=== PATIENT | female | born 1965 | race Caucasian/White ===

== ENCOUNTER 2017-05-17 07:56 | Emergency (ER) | payer OTHER, SELFPAY | END 2017-05-17 10:37 | disposition home or self-care (01) | PROVIDERS: Emergency Provider Family Medicine; Family Provider Family Medicine; Visit Provider Family Medicine | DX: R06.02 Shortness of breath (principal); J44.1 Chronic obstructive pulmonary disease with (acute) exacerbation; J09.X2 Influenza due to identified novel influenza A virus with other respiratory manifestations | CPT/HCPCS: 71020; 80053; 82550; 82553; 82803; 83605; 84484; 85025; 87040; 87275; 87276; 93005; 94640; 96374; 99284 ==

== ENCOUNTER → 2017-07-29 10:40 | Outpatient (CLI) | payer OTHER, SELFPAY ==
--- NOTE | 2017-07-29 10:46 | XR_ITS ---
EXAM: XR lumbar spine min 4V HISTORY: ITS.REASON: LOW BACK PAIN ORDERING PHYSICIAN: Huma Courtney PATIENT AGE: 51 years COMPARISON: None FINDINGS: Normal alignment. No fracture or dislocation. No lytic or blastic change. Mild degenerative disc disease is present at L3-L4 4 L5 and L5-S1 with mild facet hypertrophic changes. IMPRESSION: Mild lumbar spondylosis, no acute finding
== END ==
PROVIDERS: PCP Family Medicine; Visit Provider Nurse Practitioner
DX: M54.5 Low back pain (principal); G89.29 Other chronic pain
CPT/HCPCS: 72110

== ENCOUNTER 2017-09-02 09:30 | Outpatient (RCR) | payer OTHER, SELFPAY | END 2017-09-02 09:31 | disposition home or self-care (01) | LOC: PT 09:30 | PROVIDERS: Family Provider Family Medicine; PCP Family Medicine; Visit Provider Nurse Practitioner | DX: M54.5 Low back pain (principal); G89.29 Other chronic pain | CPT/HCPCS: 97010; 97014; 97033; 97035; 97110; G0283 ==

== ENCOUNTER → 2017-10-26 12:55 | Outpatient (CLI) | payer OTHER, SELFPAY ==
--- NOTE | 2017-10-26 13:01 | MR_ITS ---
MR lumbar spine wo con, MR 3-d myelogram HISTORY: PT States low back pain/RT side low back numbness and bilateral Leg weakness. ITS.REASON: ACUTE BILATERAL LOW BACK PAIN WITHOUT SCIATICA ORDERING PHYSICIAN: Huma Courtney PATIENT AGE: 51 years Comparison: X-RAY 07/29/17 TECHNIQUE: Standard multiplanar multiecho sequences are performed without contrast. 3-D MIP and myelographic images are also rendered and reviewed FINDINGS: There is normal alignment. Spinal cord ends at the T12-L1 level. T11-T12 and T12-L1 have an unremarkable appearance. L1-L2: Small anterior osteophytes at the endplates. L2-L3: Mild facet and ligamentum flavum hypertrophy. L3-L4: Minimal bulging disc. Moderate facet and ligamentum flavum hypertrophy with bilateral lateral recess narrowing more prominent on the right with impingement upon the right L4 nerve root. L4-L5: Degenerative disc disease with bulging disc. Moderate to severe bilateral facet and ligamentum flavum hypertrophy with resultant transverse canal stenosis of 8 mm along with moderate bilateral foraminal narrowing and bilateral lateral recess narrowing with impingement upon the L5 nerve roots bilaterally. 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 No extruded herniated disc evident. IMPRESSION: 1. L3-L4: Minimal bulging disc. Moderate facet and ligamentum flavum hypertrophy with bilateral lateral recess narrowing more prominent on the right with impingement upon the right L4 nerve root. 2. L4-L5: Degenerative disc disease with bulging disc. Moderate to severe bilateral facet and ligamentum flavum hypertrophy with resultant transverse canal stenosis of 8 mm along with moderate bilateral foraminal narrowing and bilateral lateral recess narrowing with impingement upon the L5 nerve roots bilaterally. 3. 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
== END ==
PROVIDERS: Family Provider Family Medicine; PCP Family Medicine; Visit Provider Nurse Practitioner
DX: M54.5 Low back pain (principal)
CPT/HCPCS: 72148; 76376

== ENCOUNTER → 2018-11-08 09:24 | Outpatient (CLI) | payer OTHER, SELFPAY ==
--- NOTE | 2018-11-08 09:29 | MM_ITS ---
MM Dig screening mamm BI w/CAD ORDERING PHYSICIAN : Hilda Villalobos APRN PATIENT AGE: 52 years GENDER: Female COMPARISON: August 2014, January 2016, October 2017. & As well as 2009 mammogram INDICATION: ITS.Routine screening. No hormones. No new complaints. Family history. Maternal aunt with breast cancer x2; maternal cousin Several episodes Infection inferior left nipple TECHNIQUE: Standard CC and MLO images were obtained. R2 CAD reviewed. left CC nipple profile view included FINDINGS: Moderate breast density. Mild asymmetry. Mild heterogeneity however I see no suspicious new findings. No suspicious or dominant mass. No suspicious calcifications. Bilateral follow-up in one year adequate. RIGHT BREAST:No significant new finding Stable small intramammary node at the lateral right breast again observed LEFT BREAST:No significant new finding Stable small intramammary node at the lateral left breast again observed A stable fibroglandular elements in the retroareolar region left IMPRESSION: ...... . Stable bilateral mammogram;. No significant new findings. Moderate breast density. Follow-up in one year recommended BI-RADS Category: 2 Benign Finding(s) RECOMMENDED FOLLOW-UP: 1YR 1 YEAR FOLLOW-UP (A letter has been sent to the patient regarding results of the study.)
== END ==
PROVIDERS: PCP Nurse Practitioner; Visit Provider Nurse Practitioner Family
DX: Z00.00 Encounter for general adult medical examination without abnormal findings (principal); Z12.31 Encounter for screening mammogram for malignant neoplasm of breast
CPT/HCPCS: 77067

== ENCOUNTER 2019-12-26 14:23 | Inpatient (IN) | payer OTHER, SELFPAY ==
[2019-12-26] VITALS (21 sets, daily range): BP systolic 99–144; BP diastolic 61–91; PULSE 81–100; RESP 14–22; TEMP 36.2–43; O2SAT 93–100; BMI 46.5
--- NOTE | 2019-12-26 14:38 | PC.NURSE ---
pt admitted to room 208 via wheelchair
--- NOTE | 2019-12-26 15:23 | P.CONPHA_ITS ---
[facility] Pharmacy VTE Monitoring - Patient Demographics Admission date: 12/26/19 Report Date: 12/26/19 Time: 15:23 Allergies/Adverse Reactions: Patient Allergies TANGERINES Allergy (Mild, Uncoded 05/12/17 14:43) I-RASH Height: 1.75 m Weight: 142.882 kg - Prophylaxis VTE Prophylaxis Ordered?: Yes Types of VTE Prophylaxis: TEDS Knee High Location of Applied Device: Bilateral Lower Extremeties - VTE Diagnosis Confirmed Treatment or plan recommended: Continue Current Treatment
[2019-12-26 15:27] LABS: Chloride 109 mmol/L (98-107); Potassium 4.2 mmoL/L (3.5-5.1); Sodium 139 mmol/L (136-145)
--- NOTE | 2019-12-26 15:28 | HMH.GSCON ---
*Admission Date: 12/26/19 *Reason for consult:: Gluteal, probable perirectal abscess *History of present illness: Patient is a 54-year-old female who states that last week she had some diarrhea. She developed a abscess of the perirectal location characterized by small area of tenderness 4 days ago and was seen in her primary care provider's office. She was started on oral antibiotics. She followed up in the office this afternoon. She was found to have progression with evidence of significant soft tissue infection. She was admitted for inpatient management and surgical consultation. Review of Systems - Review of Systems Review of systems:: pertinent systems reviewed and negative unless documented below [facility] History *Have you ever received a pneumonia vaccine?: No *Have you received a flu vaccine this season?: No - *Social History Smoking Status: Never smoker Alcohol Intake: never *Occupational Status:: employed Household Members: spouse *Travel in the last 8 weeks: None Family Hx:: Non-contributory Meds Home Medications Medication Instructions Recorded Confirmed Type Azithromycin [Zithromax 250mg 250 mg PO DIRECTED #6 tab 12/26/18 Rx tab] Benzonatate [Tessalon Perle 100mg 100 mg PO TID PRN 5 Days #14 cap 12/26/18 Rx Cap] predniSONE [Prednisone 20mg 20 mg PO BID #10 tab 12/26/18 Rx Tab] Allergies Allergy/AdvReac Type Severity Reaction Status Date / Time TANGERINES Allergy Mild I-RASH Uncoded 05/12/17 14:43 Exam Vital signs and Labs for Last 24 Hours: Temp Pulse Resp BP Pulse Ox 97.9 F 100 H 22 103/75 L 98 12/26/19 14:50 12/26/19 14:50 12/26/19 14:50 12/26/19 14:50 12/26/19 14:50 I & O for Last 24 hours: Intake & Output 12/24/19 12/25/19 12/26/19 12/27/19 11:59 11:59 11:59 11:59 Weight 315 lb - *Routine Respiratory Exam Present: CTA bilaterally - *Routine Cardiovascular Exam Present: RRR - *Routine Exam Comments: Patient has a large abscess of the perineum involving the left gluteal area which is markedly tender. There is obvious full-thickness soft tissue necrosis which is very foul-smelling. Assessment and Plan - Assessment and plan all Dx Assessment and Plan for all problems:: Plan for emergent incision and drainage and debridement of apparent necrotizing soft tissue infection. I explained the seriousness of the situation to the patient including the planned procedure. I did inform her that this could potentially require more extensive surgery including even diverting colostomy and potentially transfer to tertiary facility pending the operative findings and and immediate postoperative situation. Arrangements are to be made for immediate operative intervention.
[2019-12-26 15:30] LABS: Anion Gap 16.2 mEq/L (5-15); Blood Urea Nitrogen 39 mg/dl (7-17); Calcium 9.3 mg/dl (8.4-10.2); Carbon Dioxide 18 mmol/L (22.0-30.0); Creatinine Clearance Estimated 33 mL/min (50-200); Estimated Glomerular Filt Rate 25 ml/min (>60); GFR (African American) 30 ML/MIN (>60); Glucose 116 mg/dl (74-100)
[2019-12-26 15:32] LABS: Basophils # 0.1 K/mm3 (0-0.2); Basophils % 0.4 % (0.1-2.0); Eosinophils # 0.3 K/mm3 (0.0-0.4); Eosinophils % 1.8 % (0.1-12.0); Hemoglobin 12.3 g/dL (12.2-16.2); Mean Corpuscular HGB Conc 33.3 g/dL (31.8-35.4); Mean Corpuscular Hemoglobin 28.1 pg (27.0-31.2); Mean Corpuscular Volume 84.4 fl (81-99); Mean Platelet Volume 8.7 fl (7.4-10.4); Monocytes # 0.7 K/mm3 (0.1-1.0); Monocytes % 4.1 % (1.7-9.3); Neutrophils # 11.8 K/mm3 (1.8-7.8); Neutrophils % 74.7 % (37.0-80.0); Platelet Count 510 K/mm3 (142-424); Red Blood Count 4.39 M/mm3 (4.20-5.40); Red Cell Distribution Width 14.4 % (11.5-17.5); White Blood Count 15.8 K/mm3 (4.8-10.8)
[2019-12-26 15:41] LABS: MANUAL DIFFERENTIAL MANUAL DIFFERENTIAL (MANUAL DIFF)
--- NOTE | 2019-12-26 15:53 | HMH.HP ---
*Admission Date: 12/26/19 *Chief complaint: left buttock pain *History of present illness: 54 year old female seen in office today with swollen, tender, fluctuant mass in inferior left buttock that first appearred December 20. On December 20 patient noted discomfort in the area with progressive swelling and pain by December 21. On December 21 the lesion partially ruptured which relieved some of the pain. Patient seen in office on December 22 and had abscess, suspected to be perirectal due to foul smell from wound. Patient gave history of recent diarrheal illness 4 days before mass appeared. Patient declined admission citing cost of hospitalization. In follow up today the wound was no better and was draining stool from the center of the wound. Patient denied fevers. Bowel movements were loose. [facility] History I have reviewed the patient's past medical history: Yes Medical History: Reports:: Asthma, Hypertension *Have you ever received a pneumonia vaccine?: No *Have you received a flu vaccine this season?: No - *Social History Smoking Status: Never smoker Alcohol Intake: never *Occupational Status:: employed Household Members: spouse *Travel in the last 8 weeks: None Family Hx:: Non-contributory Review of Systems - Constitutional Denies anorexia, Denies body ache(s), Denies chills, Denies fever(s) - ENT Reports abnormal hearing, Reports bleeding gums - *Cardiovascular Reports chest pain, Reports chest pain at rest - *Respiratory Reports change in phlegm color, Reports chest congestion, Reports cough - *Gastrointestinal Reports abdominal pain, Reports belching, Reports bloating - *Genitourinary Denies painful urination, Denies genital lesions - Integumentary/Breasts Reports bleeding lesions, Reports redness, Reports boil - *Neurologic Denies abnormal speech, Denies confusion Meds Home Medications Medication Instructions Recorded Confirmed Type Albuterol Sulfate [Albuterol 18 gm IH Q6 PRN 12/26/19 12/26/19 History Sulfate Hfa] Amoxicillin/Potassium Clav 1 tab PO BID 12/26/19 12/26/19 History [Amox-Clav 875-125 mg Tablet] Cyclobenzaprine HCl 10 mg PO TID PRN 12/26/19 12/26/19 History [Cyclobenzaprine 10mg Tab] Diclofenac Sodium [Diclofenac 75mg 75 mg PO BID 12/26/19 12/26/19 History Tab] Famotidine [Acid Controller] 20 mg PO BID 12/26/19 12/26/19 History Fluticasone Propion/Salmeterol 1 puff PO BID 12/26/19 12/26/19 History [Fluticasone-Salmeterol 500-50] Gabapentin [Gabapentin 100mg Cap] 100 mg PO HS 12/26/19 12/26/19 History Loratadine [Allergy] 10 mg PO DAILY 12/26/19 12/26/19 History Simvastatin 20 mg PO DAILY 12/26/19 12/26/19 History lisinopriL [Lisinopril 10mg Tab] 10 mg PO DAILY 12/26/19 12/26/19 History Allergies Allergy/AdvReac Type Severity Reaction Status Date / Time TANGERINES Allergy Mild I-RASH Uncoded 05/12/17 14:43 Exam Vital signs and Labs for Last 24 Hours: Temp Pulse Resp BP Pulse Ox 97.9 F 100 H 22 103/75 L 98 12/26/19 14:50 12/26/19 14:50 12/26/19 14:50 12/26/19 14:50 12/26/19 14:50 Laboratory Results - last 24 hr 12/26/19 15:10: WBC 15.8 H, RBC 4.39, Hgb 12.3, Hct 37.0, MCV 84.4, MCH 28.1, MCHC 33.3, RDW 14.4, Plt Count 510 H, MPV 8.7, Neut % (Auto) 74.7, Lymph % (Auto) 19.0, [place] % (Auto) 4.1, Eos % (Auto) 1.8, Baso % (Auto) 0.4, Neut # (Auto) 11.8 H, Lymph # (Auto) 3.0, [place] # (Auto) 0.7, Eos # (Auto) 0.3, Baso # (Auto) 0.1 12/26/19 15:10: Sodium 139, Potassium 4.2, Chloride 109 H, Carbon Dioxide 18 L, Anion Gap 16.2 H, BUN 39 H, Creatinine 2.10 H, Estimated Creat Clear 33, Estimated GFR 25 L, Est GFR ( Amer) 30 L, Glucose 116 H, Calcium 9.3 I & O for Last 24 hours: Intake & Output 12/24/19 12/25/19 12/26/19 12/27/19 11:59 11:59 11:59 11:59 Weight 315 lb - Constitutional mild distress - *Routine HEENT Exam Head: Present: normocephalic Eye: Present: EOMI, PERRL ENT: Present: mucous membranes moist - *Routine Neck Exam Present: gilliland
--- NOTE | 2019-12-26 15:58 | PC.NURSE ---
pt to OR @ [id number] via bed with Kenny Parr RN
[2019-12-26 16:06] LABS: Coronavirus 19 IgG Antibody Negative (Negative); Coronavirus 19 IgM Antibody Negative (Negative)
[2019-12-26 16:12] LABS: Lymphocytes % 13 % (10-50); Monocytes % 2 % (2-9); Neutrophils % 80 % (42-76); Platelet Estimate Slight Increase; RBC Morphology Normal; Total Cells Counted 100
--- NOTE | 2019-12-26 16:26 | PC.NURSE ---
called preop (Kenny Parr) regarding pt's lab work. Pt is triggering for sepsis. RR>20, P>90, WBC 15.8 and Cr 2.10. Kenny Parr reports that pt is already in surgery and that she will notify Dr. Corbin of the results.
--- NOTE | 2019-12-26 16:27 | PC.NURSE ---
received phone call from Ana Silva RN regarding pt. meeting sepsis criteria. Called into OR and informed Spenser Petersen CRNA and he stated he would inform Dr. Corbin.
--- NOTE | 2019-12-26 16:44 | PC.NURSE ---
pt's left buttock wound measures 8cm length and 5cm width. Picture obtained for chart.
--- NOTE | 2019-12-26 17:13 | HMH.OPNOTE ---
Date of procedure: 12/26/19 Pre-op Diagnosis:: Necrotizing soft tissue infection of the left gluteal region Post-op Diagnosis:: Same Procedure performed:: Incision and drainage of complex left gluteal/perirectal abscess with debridement of skin and subcutaneous tissues Surgeon:: Javier Corbin MD TELEVISION NEWS ANCHOR:: Art Petersen Anesthesia: LMA Estimated blood loss (mL): 25 Clinical Note:: Patient is a 54-year-old female who states that last week she had some diarrhea. She developed a abscess of the perirectal location characterized by small area of tenderness 4 days ago and was seen in her primary care provider's office. She was started on oral antibiotics. She followed up in the office this afternoon. She was found to have progression with evidence of significant soft tissue infection. She was admitted for inpatient management and surgical consultation. Patient was seen and examined found to have a large area of cellulitis with central fluctuance with evidence of full-thickness necrosis with foul-smelling drainage consistent with at least focal area of necrotizing soft tissue infection. Plan was made for emergent debridement Operative findings:: She had area of full-thickness necrosis of the skin and superficial subcutaneous tissue. There was some deep tracking in the inferior lateral location and somewhat anteriorly there was some tunneling. There is minimal deep tracking and undermining medially. Overall size of the debrided area measured approximately 8 x 12 cm. Operative note:: Consent was obtained and patient was taken the operating room. She was given preoperative intravenous antibiotics. In the operating room she was placed in a supine position. General anesthesia was induced. She was positioned in traditional lithotomy position. The area was prepped and draped in the standard surgical fashion. There was evidence of full-thickness necrosis with some liquefied necrosis. Limited incision was made at the border of the obvious necrosis. There is some underlying purulent material which was sent for culture. Obviously necrotic tissues were sharply debrided from the underlying subcutaneous tissues. Additional debridement was carried out using electrocautery. The wound was rather wide. Debridement was carried out to what appeared to be relatively healthy soft tissues. Please see wound dimensions and findings. Wound was then thoroughly irrigated with 3 L of pulsatile saline irrigation using the inter-pulse device. Hemostasis was achieved with electrocautery. Some local anesthetic was infiltrated. Wound was packed with a saline moistened Kerlix gauze. Clean dry sterile dressing was applied. Condition: stable Disposition: PACU Specimens:: Debrided tissue. Aerobic and anaerobic culture sent Complications:: None immediately apparent
--- NOTE | 2019-12-26 17:16 | HMH.ANESCL ---
[facility] Anesthesia Checklist - Patient Identification Patient Identification: Arm Band - Structural Data Admitted From: Inpatient Planned Operative Procedure/s: I&D perirectal abscess Consent for Planned Operative Procedure(s) Verified: Yes Verified Documents: Surgical Consent, History and Physical - NPO Status Verified Time NPO: 07:00 - Additional verifications Anesthesia Reactions: No - Airway Assessment C-Spine Mobility Assessed: Yes (mp2) TMJ Mobility Assessed: Yes Dentition: Poor Dentition (upper edentulous) - Neurological Assessment Level of Consciousness: Awake, Alert - Anesthesia Plan Anesthesia Risk discussed: Yes Anesthesia Plan: Verified ASA Class: III (e) Anesthesia Type: General [facility] History I have reviewed the patient's past medical history: Yes Medical History: Reports:: Asthma, Chronic Obstructive Pulmonary Disease (COPD), Hypertension Denies:: Cancer, Diabetes Mellitus Type 1, Diabetes Mellitus Type 2, Internal Pacemaker, MRSA *Have you ever received a pneumonia vaccine?: No *Have you received a flu vaccine this season?: No Anesthesia experience/problems:: nac Other Surgeries: Yes: Hysterectomy-Total, Other. No: Pacemaker Amputation: No Fractures: No - *Social History Last grade of school completed: High school graduate Smoking Status: Never smoker Alcohol Intake: never Substance Use Type: denies use *Occupational Status:: employed Housing: house Household Members: spouse *Travel in the last 8 weeks: None Family Hx:: Unable to obtain
--- NOTE | 2019-12-26 17:17 | P.PN_ITS ---
[facility] Anesthesia Record Part I Intake, IV Amount: 800 Estimated blood loss (mL): 25 Urine output (mL): 0 Blood Pressure: 105/64 SaO2: 95 Pulse Rate: 87 Respiratory Rate: 16 Temperature: 97.1 F Patient is:: Drowsy, Stable Stable to PACU at:: 17:15
--- NOTE | 2019-12-26 17:47 | PC.NURSE ---
received report from PACU (Winter Champion RN).
--- NOTE | 2019-12-26 18:06 | PC.NURSE ---
1748-detailed report called to KING Drake 1750-pt transported to 2nd floor room 208 via hospital bed w/preet rails up per KING Molina and ST Kris. Pt left in care of KING Drake with bed locked in lowest position, vss, family at bedside, pt stable.
--- NOTE | 2019-12-26 18:15 | PC.NURSE ---
Vanc consult on JUL. Called pharmacist onclurdes. Received call back from Emerita Gutierrez with new order for Vanc 2500mg Q24hrs. Give 1st dose now. 250mL bag of NS over 2hrs. Order read back to Emerita Gutierrez. Order faxed to [place] pharmacy.
[2019-12-26 18:45] LABS: Hemoglobin A1C 5.9 % (4.0-6.0)
--- NOTE | 2019-12-26 19:42 | HMH.ANESII ---
[facility] Anesthesia Record Part II Discharge Time: 17:51 Destination: Medical Surgical Department PACU nurse assessment reviewed?: Yes Patient Condition:: Good Anesthesia Complications:: None Swallowing reflex intact?: Yes Cyanosis?: No Blood Pressure: 118/84 Pulse Rate: 84 Temperature: 97.6 F Mental Status: Alert & Oriented Pain level:: 0 Nausea and/or vomitting:: None Intake, IV Amount: 0
[2019-12-27] VITALS (7 sets, daily range): BP systolic 101–124; BP diastolic 44–71; PULSE 83–96; RESP 17–22; TEMP 36.7–37.1; O2SAT 95–99; BMI 47.0
--- NOTE | 2019-12-27 05:27 | PC.NURSE ---
2044- WHILE ASSISTING PT. TO BSC ABD AND SOME 4X4'S FELL OFF; REPLACED THESE WITH NEW AND REINFORCED DSG WITH TAPE. 199- WHILE ASSISTING PT. ON BSC, DSG FELL OFF. SOME SALINE SOAKED KERLEX REMAINED. PACKED WOUND WITH ADDITIONAL SALINE SOAKED KERLEX, APPLIED 4X4S, ABD PAD, AND TAPE. PT. WAS PREMEDICATED PRIOR TO DSG BEING APPLIED. MODERATE SEROUS DRAINAGE NOTED T/O SHIFT. NO VISIBLE S/S OF INFECTION NOTED.
--- NOTE | 2019-12-27 07:09 | HMH.GSPN ---
Subjective Narrative: Patient without complaints other than being hungry . Dressing change performed earlier this morning due to dislodgment of the dressing during bathroom trip. Exam Vital signs and Labs for Last 24 Hours: Temp Pulse Resp BP Pulse Ox 98.1 F 83 17 113/71 97 12/27/19 04:00 12/27/19 04:00 12/27/19 04:00 12/27/19 04:00 12/27/19 04:00 Laboratory Results - last 24 hr 12/26/19 15:10: WBC 15.8 H, RBC 4.39, Hgb 12.3, Hct 37.0, MCV 84.4, MCH 28.1, MCHC 33.3, RDW 14.4, Plt Count 510 H, MPV 8.7, Neut % (Auto) 74.7, Lymph % (Auto) 19.0, [place] % (Auto) 4.1, Eos % (Auto) 1.8, Baso % (Auto) 0.4, Neut # (Auto) 11.8 H, Lymph # (Auto) 3.0, [place] # (Auto) 0.7, Eos # (Auto) 0.3, Baso # (Auto) 0.1, Total Counted 100, Neutrophils % (Manual) 80 H, Band Neutrophils % 5.0, Lymphocytes % (Manual) 13, Monocytes % (Manual) 2, Platelet Estimate Slight increase, RBC Morphology Normal 12/26/19 15:10: Sodium 139, Potassium 4.2, Chloride 109 H, Carbon Dioxide 18 L, Anion Gap 16.2 H, BUN 39 H, Creatinine 2.10 H, Estimated Creat Clear 33, Estimated GFR 25 L, Est GFR ( Amer) 30 L, Glucose 116 H, Calcium 9.3 12/26/19 15:10: SARS-CoV-2 IgG Ab (Rapid) Negative, SARS-CoV-2 IgM Ab (Rapid) Negative 12/26/19 15:10: Hemoglobin A1c 5.9 I & O for Last 24 hours: Intake & Output 12/24/19 12/25/19 12/26/19 12/27/19 11:59 11:59 11:59 11:59 Intake Total 920 / 920 Output Total 1100 / 1100 Balance -180 / -180 Weight 318 lb Microbiology Reports for the Last 24 Hours: Microbiology 12/26/19 16:35 Buttock - Abscess Gram Stain - Final 12/26/19 16:35 Buttock - Abscess Abscess Culture - Preliminary - *Routine Skin Exam Comments: Wound is clean. There is some minor induration and cellulitis surrounding which is somewhat tender. Progress Note: A&P (1) Zoya-rectal abscess Status: Acute Current Visit: Yes Assessment and Plan for All Diagnoses:: Continue wound care and antibiotics. Currently on Zosyn and vancomycin. Cultures pending.
--- NOTE | 2019-12-27 07:23 | HMH.ACPN2 ---
Internal Medicine - PN: Subj *Date: 12/27/19 *Time: 07:23 Interval history: Patient reports improvement in pain in the left buttock. Because of the large wound she has trouble keeping her packing in the wound. Exam Vital signs and Labs for Last 24 Hours: Temp Pulse Resp BP Pulse Ox 98.1 F 83 17 113/71 97 12/27/19 04:00 12/27/19 04:00 12/27/19 04:00 12/27/19 04:00 12/27/19 04:00 Laboratory Results - last 24 hr 12/26/19 15:10: WBC 15.8 H, RBC 4.39, Hgb 12.3, Hct 37.0, MCV 84.4, MCH 28.1, MCHC 33.3, RDW 14.4, Plt Count 510 H, MPV 8.7, Neut % (Auto) 74.7, Lymph % (Auto) 19.0, [place] % (Auto) 4.1, Eos % (Auto) 1.8, Baso % (Auto) 0.4, Neut # (Auto) 11.8 H, Lymph # (Auto) 3.0, [place] # (Auto) 0.7, Eos # (Auto) 0.3, Baso # (Auto) 0.1, Total Counted 100, Neutrophils % (Manual) 80 H, Band Neutrophils % 5.0, Lymphocytes % (Manual) 13, Monocytes % (Manual) 2, Platelet Estimate Slight increase, RBC Morphology Normal 12/26/19 15:10: Sodium 139, Potassium 4.2, Chloride 109 H, Carbon Dioxide 18 L, Anion Gap 16.2 H, BUN 39 H, Creatinine 2.10 H, Estimated Creat Clear 33, Estimated GFR 25 L, Est GFR ( Amer) 30 L, Glucose 116 H, Calcium 9.3 12/26/19 15:10: SARS-CoV-2 IgG Ab (Rapid) Negative, SARS-CoV-2 IgM Ab (Rapid) Negative 12/26/19 15:10: Hemoglobin A1c 5.9 I & O for Last 24 hours: Intake & Output 12/24/19 12/25/19 12/26/19 12/27/19 11:59 11:59 11:59 11:59 Intake Total 920 / 920 Output Total 1100 / 1100 Balance -180 / -180 Weight 318 lb Microbiology Reports for the Last 24 Hours: Microbiology 12/26/19 16:35 Buttock - Abscess Gram Stain - Final 12/26/19 16:35 Buttock - Abscess Abscess Culture - Preliminary Narrative: Patient looks comfortable. Lungs have expiratory wheezes this morning. Heart has a regular rate and rhythm abdomen is obese and soft. Left inferior buttock dressing is in place at this time Assessment and Plan (1) Zoya-rectal abscess Current visit: Yes Status: Acute Category: Medical Code(s): K61.1 - Rectal abscess Continue IV antibiotics and dressing changes. Await cultures (2) Asthma, moderate persistent Current visit: Yes Status: Chronic Category: Medical Code(s): J45.40 - Moderate persistent asthma, uncomplicated Start home medications (3) Essential hypertension Current visit: Yes Status: Chronic Category: Medical Code(s): I10 - Essential (primary) hypertension Start lisinopril
[2019-12-27 08:44] LABS: Basophils # 0.1 K/mm3 (0-0.2); Basophils % 0.3 % (0.1-2.0); Eosinophils # 0.1 K/mm3 (0.0-0.4); Eosinophils % 0.3 % (0.1-12.0); Hematocrit 35.5 % (37.0-47.0); Hemoglobin 11.7 g/dL (12.2-16.2); Lymphocytes # 2.3 K/mm3 (0.7-4.5); Lymphocytes % 11.5 % (10-50); Mean Corpuscular Hemoglobin 28.3 pg (27.0-31.2); Mean Platelet Volume 7.5 fl (7.4-10.4); Monocytes # 0.4 K/mm3 (0.1-1.0); Monocytes % 1.9 % (1.7-9.3); Neutrophils # 17.2 K/mm3 (1.8-7.8); Neutrophils % 86.1 % (37.0-80.0); Platelet Count 528 K/mm3 (142-424); Red Blood Count 4.13 M/mm3 (4.20-5.40); Red Cell Distribution Width 14.4 % (11.5-17.5)
--- NOTE | 2019-12-27 08:50 | HMH.PHACONS ---
- Pharmacy Consult Date: 12/27/19 Time: 08:50 Referring provider: DR. VILA Reason for Consult:: VANCOMYCIN DOSING Allergies and ADEs:: Allergies Allergy/AdvReac Type Severity Reaction Status Date / Time MILADY Allergy Mild I-RASH Uncoded 05/12/17 14:43 Home Medications:: Home Medications Medication Instructions Recorded Confirmed Type Albuterol Sulfate [Albuterol 18 gm IH Q6 PRN 12/26/19 12/26/19 History Sulfate Hfa] Amoxicillin/Potassium Clav 1 tab PO BID 12/26/19 12/26/19 History [Amox-Clav 875-125 mg Tablet] Cyclobenzaprine HCl 10 mg PO TID PRN 12/26/19 12/26/19 History [Cyclobenzaprine 10mg Tab] Diclofenac Sodium [Diclofenac 75mg 75 mg PO BID 12/26/19 12/26/19 History Tab] Famotidine [Acid Controller] 20 mg PO BID 12/26/19 12/26/19 History Fluticasone Propion/Salmeterol 1 puff PO BID 12/26/19 12/26/19 History [Fluticasone-Salmeterol 500-50] Gabapentin [Gabapentin 100mg Cap] 100 mg PO HS 12/26/19 12/26/19 History Loratadine [Allergy] 10 mg PO DAILY 12/26/19 12/26/19 History Simvastatin 20 mg PO DAILY 12/26/19 12/26/19 History lisinopriL [Lisinopril 10mg Tab] 10 mg PO DAILY 12/26/19 12/26/19 History Height: 1.75 m Weight: 144.242 kg Laboratory Results:: Laboratory Results - last 24 hr 12/26/19 15:10: WBC 15.8 H, RBC 4.39, Hgb 12.3, Hct 37.0, MCV 84.4, MCH 28.1, MCHC 33.3, RDW 14.4, Plt Count 510 H, MPV 8.7, Neut % (Auto) 74.7, Lymph % (Auto) 19.0, [place] % (Auto) 4.1, Eos % (Auto) 1.8, Baso % (Auto) 0.4, Neut # (Auto) 11.8 H, Lymph # (Auto) 3.0, [place] # (Auto) 0.7, Eos # (Auto) 0.3, Baso # (Auto) 0.1, Total Counted 100, Neutrophils % (Manual) 80 H, Band Neutrophils % 5.0, Lymphocytes % (Manual) 13, Monocytes % (Manual) 2, Platelet Estimate Slight increase, RBC Morphology Normal 12/26/19 15:10: Sodium 139, Potassium 4.2, Chloride 109 H, Carbon Dioxide 18 L, Anion Gap 16.2 H, BUN 39 H, Creatinine 2.10 H, Estimated Creat Clear 33, Estimated GFR 25 L, Est GFR ( Amer) 30 L, Glucose 116 H, Calcium 9.3 12/26/19 15:10: SARS-CoV-2 IgG Ab (Rapid) Negative, SARS-CoV-2 IgM Ab (Rapid) Negative 12/26/19 15:10: Hemoglobin A1c 5.9 Medical History: Reports:: Asthma, Chronic Obstructive Pulmonary Disease (COPD), Hypertension Denies:: Cancer, Diabetes Mellitus Type 1, Diabetes Mellitus Type 2, Internal Pacemaker, MRSA Assessment and Plan (1) Zoya-rectal abscess Current visit: Yes Status: Acute Category: Medical Code(s): K61.1 - Rectal abscess (2) Asthma, moderate persistent Current visit: Yes Status: Chronic Category: Medical Code(s): J45.40 - Moderate persistent asthma, uncomplicated (3) Essential hypertension Current visit: Yes Status: Chronic Category: Medical Code(s): I10 - Essential (primary) hypertension - Assessment and plan all Dx Assessment and Plan for all problems:: IBW (kg): 65.97 Dosing wt(kg): 144 Estimated Creatinine clearance (ml/min): 42.8 CRCL method: Cockcroft and Gault using ibw(default). Drug selected: Vancomycin Loading dose (mg): 0 Vd (liters): 115.2 (factor used: 0.8 L/kg) Bishnu (hr-1): 0.040 Half life (hrs): 17.33 Recommended dose: 2500 mg Interval: 24 hrs Infusion time (hrs): 2.0 Predicted peak (mcg/mL): 33.8 Predicted trough (mcg/mL): 14.02 Total body weight is being used for vancomycin dosing. Recommendations: Give Vancomycin 2500 mg q 24 hrs with an expected Cpeak of 33.8 mcg/ml and an expected Ctrough of 14.02 mcg/ml. Thank you for the consult, will continue to follow.
[2019-12-27 08:53] LABS: Chloride 110 mmol/L (98-107)
[2019-12-27 08:54] LABS: Potassium 4.7 mmoL/L (3.5-5.1); Sodium 140 mmol/L (136-145)
[2019-12-27 08:55] LABS: MANUAL DIFFERENTIAL MANUAL DIFFERENTIAL (MANUAL DIFF)
[2019-12-27 08:56] LABS: Blood Urea Nitrogen 24 mg/dl (7-17); Creatinine Clearance Estimated 41 mL/min (50-200); Estimated Glomerular Filt Rate 34 ml/min (>60); GFR (African American) 41 ML/MIN (>60)
[2019-12-27 08:57] LABS: Anion Gap 13.7 mEq/L (5-15); Carbon Dioxide 21 mmol/L (22.0-30.0); Glucose 147 mg/dl (74-100)
[2019-12-27 10:18] LABS: Eosinophils % 1 % (0-3); Lymphocytes % 10 % (10-50); Monocytes % 3 % (2-9); Neutrophils % 86 % (42-76); RBC Morphology Normal; Total Cells Counted 100
[2019-12-27 10:19] LABS: Platelet Estimate Slight Increase
--- NOTE | 2019-12-27 16:08 | PC.NURSE ---
PT AO*4 T/O SHIFT, CURRENTLY 99% ON RA. PT HAS HAD DRESSING CHANGE *1 THIS SHIFT AFTER DRESSING BECAME DISLODGED WITH AMBULATION. ABSESS ON LEFT BUTTOCK REPACKED WITH KERLEX AND COVERED WITH TAPE, DRESSING C/D/I. PT HAS BEEN MEDICATED WITH MORPHINE *1 THIS SHIFT FOLLOWING WOUND CARE. AFTER MORPHINE ADMIN PT RESTED COMFORTABLY. NO C/O SOA OR PAIN AT THIS TIME.
--- NOTE | 2019-12-27 20:15 | PC.NURSE ---
PT HAS NEEDED 2 DRESSING CHANGES THIS SHIFT B/C PACKING FALLS OUT WHEN PT GETS UP TO HAVE A BOWEL MOVEMENT. MEDICATED WITH MORPHINE AFTER EACH DRESSING CHANGE.
[2019-12-28] VITALS: BP 124/64; PULSE 64; RESP 16; TEMP 36.7; O2SAT 98
--- NOTE | 2019-12-28 03:34 | PC.NURSE ---
A&OX4. PT HAS TOLERATED ROOM AIR WELL TONIGHT. RESPIRATIONS REGULAR AND UNLABORED. WHEEZES NOTED THROUGHOUT. NO COUGH NOTED. +2 PULSES NOTED THROUGHOUT. NO EDEMA NOTED. HAND TELECOMMUNICATIONS PROJECT MANAGER EQUAL. DRESSING NOTED TO L BUTTOCK AREA R/T JAE RECTAL ABSCESS. CDI. ACTIVE BOWEL SOUNDS HEARD IN ALL 4 QUADRANTS. SOFT AND NONTENDER. PT AMBULATES TO THE RESTROOM INDEPENDENTLY. TOLERATES WELL. CLEAR YELLOW URINE NOTED IN MEASURING HAT. NO REPORTS OF NAUSEA THUS FAR. PT HAS BEEN RESTLESS IN BED SOME AND STATES SHE IS HAVING TROUBLE GETTING COMFORTABLE IN BED. PROVIDED PT WITH PILLOWS AND SHE STATED IT WAS A LOT BETTER. PT REPORTED PAIN ONCE THIS SHIFT RATING 6/10. PT STATED SHE DIDN'T WANT TO TAKE ANYTHING AT FIRST BECAUSE SHE KNEW SHE WOULDN'T BE ABLE TO TAKE ANYTHING ONCE SHE WAS DISCHARGED. SHE ALSO SAID SHE WAS SCARED TO TAKE PAIN MEDS DUE TO HX OF ADDICTION IN HER FAMILY. PT EVENTUALLY ASKED FOR PAIN MEDS AND MORPHINE 2MG WAS ADMINISTERED PER MAR. ON REASSESSMENT, PT WAS RESTING W EYES CLOSED. PT RECEIVED ZOSYN THIS SHIFT AND TOLERATED WELL. PT CURRENTLY SLEEPING IN BED W CALL LIGHT WITHIN REACH. BED IN LOWEST POSITION. VSS. NO CONCERNS AT THIS TIME. WILL CONTINUE TO MONITOR.
[2019-12-28 04:00] VITALS: BP 100/54; PULSE 90; RESP 17; TEMP 36.8; O2SAT 93
[2019-12-28 06:00] VITALS: BMI 47.1
[2019-12-28 06:33] LABS: Basophils # 0.1 K/mm3 (0-0.2); Basophils % 0.6 % (0.1-2.0); Eosinophils # 0.2 K/mm3 (0.0-0.4); Eosinophils % 1.2 % (0.1-12.0); Hematocrit 36.4 % (37.0-47.0); Hemoglobin 11.9 g/dL (12.2-16.2); Lymphocytes # 4.4 K/mm3 (0.7-4.5); Lymphocytes % 27.8 % (10-50); Mean Corpuscular HGB Conc 32.6 g/dL (31.8-35.4); Mean Corpuscular Hemoglobin 28.3 pg (27.0-31.2); Mean Corpuscular Volume 86.7 fl (81-99); Mean Platelet Volume 8.1 fl (7.4-10.4); Monocytes # 0.7 K/mm3 (0.1-1.0); Monocytes % 4.1 % (1.7-9.3); Neutrophils # 10.5 K/mm3 (1.8-7.8); Neutrophils % 66.3 % (37.0-80.0); Platelet Count 562 K/mm3 (142-424); Red Blood Count 4.19 M/mm3 (4.20-5.40); Red Cell Distribution Width 14.5 % (11.5-17.5); White Blood Count 15.8 K/mm3 (4.8-10.8)
[2019-12-28 06:44] LABS: MANUAL DIFFERENTIAL MANUAL DIFFERENTIAL (MANUAL DIFF)
--- NOTE | 2019-12-28 07:12 | P.PN_ITS ---
Internal Medicine - PN: Subj *Date: 12/28/19 *Time: 07:12 Interval history: Patient has no complaints this morning. She slept well overnight. Packing has remained in place. She reports improvement in pain although hesitancy to use narcotic pain medicine due to strong family history of dependency Exam Vital signs and Labs for Last 24 Hours: Temp Pulse Resp BP Pulse Ox 98.2 F 90 17 100/54 L 93 L 12/28/19 04:00 12/28/19 04:00 12/28/19 04:00 12/28/19 04:00 12/28/19 04:00 Laboratory Results - last 24 hr 12/27/19 08:39: WBC 20.0 H D, RBC 4.13 L, Hgb 11.7 L, Hct 35.5 L, MCV 86.0, MCH 28.3, MCHC 33.0, RDW 14.4, Plt Count 528 H, MPV 7.5, Neut % (Auto) 86.1 H, Lymph % (Auto) 11.5, [place] % (Auto) 1.9, Eos % (Auto) 0.3, Baso % (Auto) 0.3, Neut # (Auto) 17.2 H, Lymph # (Auto) 2.3, [place] # (Auto) 0.4, Eos # (Auto) 0.1, Baso # (Auto) 0.1, Total Counted 100, Neutrophils % (Manual) 86 H, Lymphocytes % (Manual) 10, Monocytes % (Manual) 3, Eosinophils % (Manual) 1, Platelet Estimate Slight increase, RBC Morphology Normal 12/27/19 08:39: Sodium 140, Potassium 4.7, Chloride 110 H, Carbon Dioxide 21 L, Anion Gap 13.7, BUN 24 H D, Creatinine 1.60 H D, Estimated Creat Clear 41, Estimated GFR 34 L, Est GFR ( Amer) 41 L D, Glucose 147 H D, Calcium 9.0 12/28/19 05:58: WBC 15.8 H, RBC 4.19 L, Hgb 11.9 L, Hct 36.4 L, MCV 86.7, MCH 28.3, MCHC 32.6, RDW 14.5, Plt Count 562 H, MPV 8.1, Neut % (Auto) 66.3, Lymph % (Auto) 27.8, [place] % (Auto) 4.1, Eos % (Auto) 1.2, Baso % (Auto) 0.6, Neut # (Auto) 10.5 H, Lymph # (Auto) 4.4, [place] # (Auto) 0.7, Eos # (Auto) 0.2, Baso # (Auto) 0.1 I & O for Last 24 hours: Intake & Output 12/25/19 12/26/19 12/27/19 12/28/19 11:59 11:59 11:59 11:59 Intake Total 1400 / 1400 300 / 300 Output Total 1100 / 1100 450 / 450 Balance 300 / 300 -150 / -150 Weight 318 lb 318 lb 6 oz Microbiology Reports for the Last 24 Hours: Microbiology 12/26/19 16:35 Buttock - Abscess Gram Stain - Final 12/26/19 16:35 Buttock - Abscess Abscess Culture - Preliminary Narrative: Patient appears comfortable. She is resting comfortably in bed. Lungs are congested with expiratory wheezes. Heart has a regular rate and rhythm. Abdomen is obese and soft. Wound dressing is intact. Assessment and Plan (1) Zoya-rectal abscess Current visit: Yes Status: Acute Category: Medical Code(s): K61.1 - Rectal abscess (2) Asthma, moderate persistent Current visit: Yes Status: Chronic Category: Medical Code(s): J45.40 - Moderate persistent asthma, uncomplicated (3) Essential hypertension Current visit: Yes Status: Chronic Category: Medical Code(s): I10 - Essential (primary) hypertension - Assessment and plan all Dx Assessment and Plan for all problems:: 1. Continue current care and await surgical evaluation this morning
[2019-12-28 08:00] VITALS: BP 130/76; PULSE 104; RESP 24; TEMP 36.8; O2SAT 96
[2019-12-28 08:22] LABS: Eosinophils % 3 % (0-3); Lymphocytes % 23 % (10-50); Monocytes % 5 % (2-9); Neutrophils % 69 % (42-76); Nucleated Red Blood Cells 2; Total Cells Counted 100
[2019-12-28 08:23] LABS: Platelet Estimate Moderate Increase; RBC Morphology Normal
--- NOTE | 2019-12-28 08:32 | HMH.GSPN ---
Subjective Narrative: No complaints. Exam Vital signs and Labs for Last 24 Hours: Temp Pulse Resp BP Pulse Ox 98.2 F 90 17 100/54 L 93 L 12/28/19 04:00 12/28/19 04:00 12/28/19 04:00 12/28/19 04:00 12/28/19 04:00 Laboratory Results - last 24 hr 12/27/19 08:39: WBC 20.0 H D, RBC 4.13 L, Hgb 11.7 L, Hct 35.5 L, MCV 86.0, MCH 28.3, MCHC 33.0, RDW 14.4, Plt Count 528 H, MPV 7.5, Neut % (Auto) 86.1 H, Lymph % (Auto) 11.5, [place] % (Auto) 1.9, Eos % (Auto) 0.3, Baso % (Auto) 0.3, Neut # (Auto) 17.2 H, Lymph # (Auto) 2.3, [place] # (Auto) 0.4, Eos # (Auto) 0.1, Baso # (Auto) 0.1, Total Counted 100, Neutrophils % (Manual) 86 H, Lymphocytes % (Manual) 10, Monocytes % (Manual) 3, Eosinophils % (Manual) 1, Platelet Estimate Slight increase, RBC Morphology Normal 12/27/19 08:39: Sodium 140, Potassium 4.7, Chloride 110 H, Carbon Dioxide 21 L, Anion Gap 13.7, BUN 24 H D, Creatinine 1.60 H D, Estimated Creat Clear 41, Estimated GFR 34 L, Est GFR ( Amer) 41 L D, Glucose 147 H D, Calcium 9.0 12/28/19 05:58: WBC 15.8 H, RBC 4.19 L, Hgb 11.9 L, Hct 36.4 L, MCV 86.7, MCH 28.3, MCHC 32.6, RDW 14.5, Plt Count 562 H, MPV 8.1, Neut % (Auto) 66.3, Lymph % (Auto) 27.8, [place] % (Auto) 4.1, Eos % (Auto) 1.2, Baso % (Auto) 0.6, Neut # (Auto) 10.5 H, Lymph # (Auto) 4.4, [place] # (Auto) 0.7, Eos # (Auto) 0.2, Baso # (Auto) 0.1, Total Counted 100, Neutrophils % (Manual) 69, Lymphocytes % (Manual) 23, Monocytes % (Manual) 5, Eosinophils % (Manual) 3, Nucleated RBCs 2, Platelet Estimate Moderate increase, RBC Morphology Normal I & O for Last 24 hours: Intake & Output 12/25/19 12/26/19 12/27/19 12/28/19 11:59 11:59 11:59 11:59 Intake Total 1400 / 1400 780 / 780 Output Total 1100 / 1100 450 / 450 Balance 300 / 300 330 / 330 Weight 318 lb 318 lb 6 oz Microbiology Reports for the Last 24 Hours: Microbiology 12/26/19 16:35 Buttock - Abscess Gram Stain - Final 12/26/19 16:35 Buttock - Abscess Abscess Culture - Preliminary - *Routine Skin Exam Comments: Some induration and cellulitis. Wound itself clean. Progress Note: A&P (1) Zoya-rectal abscess Status: Acute Current Visit: Yes (2) Asthma, moderate persistent Status: Chronic Current Visit: Yes (3) Essential hypertension Status: Chronic Current Visit: Yes Assessment and Plan for All Diagnoses:: Patient needs twice daily dressing changes for now which appears to be quite an ordeal. Await final cultures.
[2019-12-28 16:00] VITALS: BP 120/70; PULSE 85; RESP 20; TEMP 36.9; O2SAT 97
[2019-12-28 16:13] VITALS: BMI 47.0
[2019-12-28 18:28] LABS: Vancomycin,Trough 12.8 ug/mL (5.0-10.0)
[2019-12-28 20:30] VITALS: BP 109/58; PULSE 86; RESP 20; TEMP 36.7; O2SAT 97
--- NOTE | 2019-12-28 20:37 | PC.NURSE ---
Pt alert and oriented and able to make her needs known. Scattered wheezes throughout. Scheduled inhaler given per jul. Dr. Corbin did change dsg to abscess this shift and wants it done bid. Pt has had prn pain med po x 1 and states pain is now a zero/ten. at bedside.VSS. CB in reach. No complaints currently. Has ate well.
[2019-12-28 20:50] VITALS: O2SAT 97
[2019-12-29] VITALS: BP 104/57; PULSE 81; RESP 20; TEMP 36.7; O2SAT 96
[2019-12-29 04:00] VITALS: BP 110/65; PULSE 85; RESP 20; TEMP 36.8; O2SAT 94
[2019-12-29 05:00] VITALS: BMI 46.8
[2019-12-29 06:30] LABS: Basophils # 0.1 K/mm3 (0-0.2); Basophils % 0.5 % (0.1-2.0); Eosinophils # 0.4 K/mm3 (0.0-0.4); Eosinophils % 2.8 % (0.1-12.0); Hematocrit 35.7 % (37.0-47.0); Hemoglobin 11.7 g/dL (12.2-16.2); Lymphocytes # 3.8 K/mm3 (0.7-4.5); Lymphocytes % 30.7 % (10-50); Mean Corpuscular HGB Conc 32.7 g/dL (31.8-35.4); Mean Corpuscular Hemoglobin 28.5 pg (27.0-31.2); Mean Corpuscular Volume 87.2 fl (81-99); Mean Platelet Volume 7.6 fl (7.4-10.4); Monocytes # 0.6 K/mm3 (0.1-1.0); Monocytes % 4.7 % (1.7-9.3); Neutrophils # 7.6 K/mm3 (1.8-7.8); Neutrophils % 61.3 % (37.0-80.0); Platelet Count 536 K/mm3 (142-424); Red Cell Distribution Width 14.5 % (11.5-17.5); White Blood Count 12.4 K/mm3 (4.8-10.8)
--- NOTE | 2019-12-29 07:00 | PC.NURSE ---
A&OX4. PT HAS TOLERATED ROOM AIR WELL THROUGHOUT SHIFT. RESPIRATIONS REGULAR AND UNLABORED. EXPIRATORY WHEEZES NOTED THROUGHOUT. +2 PULSES NOTED THROUGHOUT. HAND FIXED ROUTE OPERATOR EQUAL. ACTIVE BOWEL SOUNDS HEARD IN ALL 4 QUADRANTS. SOFT AND NONTENDER ABDOMEN. NO BM REPORTED THIS SHIFT. PT VOIDS PER TOILET INDEPENDENTLY. TOLERATES WELL. DRESSING CHANGE COMPLETED. MORPHINE 2MG WAS ADMINISTERED BEFORE DRESSING CHANGE WAS DONE TO HELP TOLERATE PAIN. PT STATED DRESSING CHANGE WAS PAINFUL, BUT IS GETTING BETTER EACH DAY. KERLEX SOAKED IN STERILE SALINE PACKED IN WOUND WITH 4X4S AND TAPE IN PLACE. PT HAS RESTED WELL THROUGHOUT SHIFT. HAS REMAINED AFEBRILE. BED IN LOWEST POSITION. CALL LIGHT WITHIN REACH. VSS. NO CONCERNS AT THIS TIME. WILL CONTINUE TO MONITOR.
--- NOTE | 2019-12-29 07:10 | HMH.GSPN ---
Subjective Patient reports: no new complaints Narrative: Dressing changed at midnight. Per nursing staff the wound looked okay and had no spreading cellulitis. Exam Vital signs and Labs for Last 24 Hours: Temp Pulse Resp BP Pulse Ox 98.3 F 85 20 110/65 94 L 12/29/19 04:00 12/29/19 04:00 12/29/19 04:00 12/29/19 04:00 12/29/19 04:00 Laboratory Results - last 24 hr 12/28/19 05:58: Total Counted 100, Neutrophils % (Manual) 69, Lymphocytes % (Manual) 23, Monocytes % (Manual) 5, Eosinophils % (Manual) 3, Nucleated RBCs 2, Platelet Estimate Moderate increase, RBC Morphology Normal 12/28/19 16:34: Vancomycin Trough 12.8 H 12/29/19 06:00: WBC 12.4 H, RBC 4.10 L, Hgb 11.7 L, Hct 35.7 L, MCV 87.2, MCH 28.5, MCHC 32.7, RDW 14.5, Plt Count 536 H, MPV 7.6, Neut % (Auto) 61.3, Lymph % (Auto) 30.7, [place] % (Auto) 4.7, Eos % (Auto) 2.8, Baso % (Auto) 0.5, Neut # (Auto) 7.6, Lymph # (Auto) 3.8, [place] # (Auto) 0.6, Eos # (Auto) 0.4, Baso # (Auto) 0.1 I & O for Last 24 hours: Intake & Output 12/26/19 12/27/19 12/28/19 12/29/19 11:59 11:59 11:59 11:59 Intake Total 1400 / 1400 780 / 780 901 / 901 Output Total 1100 / 1100 450 / 450 Balance 300 / 300 330 / 330 901 / 901 Weight 318 lb 318 lb 6 oz 316 lb 4.8 oz Microbiology Reports for the Last 24 Hours: Microbiology 12/26/19 16:35 Buttock - Abscess Gram Stain - Final 12/26/19 16:35 Buttock - Abscess Abscess Culture - Preliminary - Constitutional no acute distress - *Routine Respiratory Exam Absent: respiratory distress - *Routine Cardiovascular Exam Present: RRR - *Routine Skin Exam Comments: Dressings intact. No spreading cellulitis. Progress Note: A&P (1) Zoya-rectal abscess Status: Acute Assessment and plan: Overall, doing fairly well status post incision and drainage/antibiotic coverage. If necessary for patient comfort her dressing changes can be once a day as opposed to twice a day. Continue antibiotics. Continue dressing changes. Possible discharge home in the next 24 to 48 hours with close outpatient follow-up. Current Visit: Yes (2) Asthma, moderate persistent Status: Chronic Current Visit: Yes (3) Essential hypertension Status: Chronic Current Visit: Yes
--- NOTE | 2019-12-29 07:27 | HMH.ACPN2 ---
Internal Medicine - PN: Subj *Date: 12/29/19 *Time: 07:27 Interval history: Patient has no complaints this morning. She reports improvement in pain in the area of her incision and drainage. Last dressing change at midnight was much less painful Exam Vital signs and Labs for Last 24 Hours: Temp Pulse Resp BP Pulse Ox 98.3 F 85 20 110/65 94 L 12/29/19 04:00 12/29/19 04:00 12/29/19 04:00 12/29/19 04:00 12/29/19 04:00 Laboratory Results - last 24 hr 12/28/19 05:58: Total Counted 100, Neutrophils % (Manual) 69, Lymphocytes % (Manual) 23, Monocytes % (Manual) 5, Eosinophils % (Manual) 3, Nucleated RBCs 2, Platelet Estimate Moderate increase, RBC Morphology Normal 12/28/19 16:34: Vancomycin Trough 12.8 H 12/29/19 06:00: WBC 12.4 H, RBC 4.10 L, Hgb 11.7 L, Hct 35.7 L, MCV 87.2, MCH 28.5, MCHC 32.7, RDW 14.5, Plt Count 536 H, MPV 7.6, Neut % (Auto) 61.3, Lymph % (Auto) 30.7, [place] % (Auto) 4.7, Eos % (Auto) 2.8, Baso % (Auto) 0.5, Neut # (Auto) 7.6, Lymph # (Auto) 3.8, [place] # (Auto) 0.6, Eos # (Auto) 0.4, Baso # (Auto) 0.1 I & O for Last 24 hours: Intake & Output 12/26/19 12/27/19 12/28/19 12/29/19 11:59 11:59 11:59 11:59 Intake Total 1400 / 1400 780 / 780 901 / 901 Output Total 1100 / 1100 450 / 450 Balance 300 / 300 330 / 330 901 / 901 Weight 318 lb 318 lb 6 oz 316 lb 4.8 oz Microbiology Reports for the Last 24 Hours: Microbiology 12/26/19 16:35 Buttock - Abscess Gram Stain - Final 12/26/19 16:35 Buttock - Abscess Abscess Culture - Preliminary - *Routine HEENT Exam Head: Present: normocephalic Eye: Present: EOMI, PERRL ENT: Present: mucous membranes moist - *Routine Neck Exam Present: supple. Absent: lymphadenopathy - *Routine Respiratory Exam Present: wheezes - *Routine Cardiovascular Exam Present: RRR - *Routine Abdominal Exam Absent: tenderness - *Routine Extremities Exam Absent: cyanosis, clubbing, edema - *Routine Skin Exam Present: warm. Absent: rash - *Routine Neurological Exam Present: alert, oriented X3 Assessment and Plan (1) Zoya-rectal abscess Current visit: Yes Status: Acute Category: Medical Code(s): K61.1 - Rectal abscess (2) Asthma, moderate persistent Current visit: Yes Status: Chronic Category: Medical Code(s): J45.40 - Moderate persistent asthma, uncomplicated (3) Essential hypertension Current visit: Yes Status: Chronic Category: Medical Code(s): I10 - Essential (primary) hypertension - Assessment and plan all Dx Assessment and Plan for all problems:: Continue dressing changes per surgical recommendations. White blood cell count is trending down.
[2019-12-29 08:00] VITALS: BP 122/68; PULSE 86; RESP 17; TEMP 37.3; O2SAT 96
--- NOTE | 2019-12-29 08:25 | PC.NURSE ---
buttock wound drsg changed. Saline soaked kerlix covered with 4x4s and paper tape. Offered mesh panties for comfort but pt refused. She is able to reposition herself for drsg change. No s/s of infection noted. No odor. Tissue is beefy red with good blood supply.
--- NOTE | 2019-12-29 11:33 | P.CONPHA_ITS ---
- Pharmacy Consult Date: 12/29/19 Time: 11:33 Referring provider: DR. VILA Reason for Consult:: VANCOMYCIN TROUGH LEVEL Allergies and ADEs:: Allergies Allergy/AdvReac Type Severity Reaction Status Date / Time orange Allergy Mild Rash Verified 12/27/19 11:00 Home Medications:: Home Medications Medication Instructions Recorded Confirmed Type Albuterol Sulfate [Albuterol 2 puffs IH Q6HP PRN 12/26/19 12/27/19 History Sulfate Hfa] Amoxicillin/Potassium Clav 1 tab PO BID 12/26/19 12/26/19 History [Amox-Clav 875-125 mg Tablet] Cyclobenzaprine HCl 10 mg PO TIDP PRN 12/26/19 12/27/19 History [Cyclobenzaprine 10mg Tab] Diclofenac Sodium [Diclofenac 75mg 75 mg PO BID 12/26/19 12/26/19 History Tab] Famotidine [Acid Controller] 20 mg PO BIDP PRN 12/26/19 12/27/19 History Fluticasone Propion/Salmeterol 1 puff PO BID 12/26/19 12/26/19 History [Fluticasone-Salmeterol 500-50] Gabapentin [Gabapentin 100mg Cap] 100 mg PO HS 12/26/19 12/26/19 History Loratadine [Allergy] 10 mg PO DAILY 12/26/19 12/26/19 History Simvastatin 20 mg PO HS 12/26/19 12/27/19 History lisinopriL [Lisinopril 10mg Tab] 10 mg PO DAILY 12/26/19 12/26/19 History Height: 1.75 m Weight: 143.471 kg Laboratory Results:: Laboratory Results - last 24 hr 12/28/19 16:34: Vancomycin Trough 12.8 H 12/29/19 06:00: WBC 12.4 H, RBC 4.10 L, Hgb 11.7 L, Hct 35.7 L, MCV 87.2, MCH 28.5, MCHC 32.7, RDW 14.5, Plt Count 536 H, MPV 7.6, Neut % (Auto) 61.3, Lymph % (Auto) 30.7, [place] % (Auto) 4.7, Eos % (Auto) 2.8, Baso % (Auto) 0.5, Neut # (Auto) 7.6, Lymph # (Auto) 3.8, [place] # (Auto) 0.6, Eos # (Auto) 0.4, Baso # (Auto) 0.1 Medical History: Reports:: Asthma, Chronic Obstructive Pulmonary Disease (COPD), Hypertension Denies:: Cancer, Diabetes Mellitus Type 1, Diabetes Mellitus Type 2, Internal Pacemaker, MRSA Assessment and Plan (1) Zoya-rectal abscess Current visit: Yes Status: Acute Category: Medical Code(s): K61.1 - Rectal abscess (2) Asthma, moderate persistent Current visit: Yes Status: Chronic Category: Medical Code(s): J45.40 - Moderate persistent asthma, uncomplicated (3) Essential hypertension Current visit: Yes Status: Chronic Category: Medical Code(s): I10 - Essential (primary) hypertension - Assessment and plan all Dx Assessment and Plan for all problems:: BASED ON PATIENT FACTORS AND VANCOMYCIN TROUGH LEVEL, RECOMMEND CONTINUING VANC OMYCIN 2500 MG IV Q24H. PHARMACY WILL CONTINUE TO FOLLOW DAILY AND ADJUST APPROPRIATE.
--- NOTE | 2019-12-29 15:17 | P.PN_ITS ---
Internal Medicine - PN: Subj *Date: 12/29/19 *Time: 15:17 Exam Vital signs and Labs for Last 24 Hours: Temp Pulse Resp BP Pulse Ox 99.2 F 86 17 122/68 96 12/29/19 08:00 12/29/19 08:00 12/29/19 08:00 12/29/19 08:00 12/29/19 08:00 Laboratory Results - last 24 hr 12/28/19 16:34: Vancomycin Trough 12.8 H 12/29/19 06:00: WBC 12.4 H, RBC 4.10 L, Hgb 11.7 L, Hct 35.7 L, MCV 87.2, MCH 28.5, MCHC 32.7, RDW 14.5, Plt Count 536 H, MPV 7.6, Neut % (Auto) 61.3, Lymph % (Auto) 30.7, [place] % (Auto) 4.7, Eos % (Auto) 2.8, Baso % (Auto) 0.5, Neut # (Auto) 7.6, Lymph # (Auto) 3.8, [place] # (Auto) 0.6, Eos # (Auto) 0.4, Baso # (Auto) 0.1 I & O for Last 24 hours: Intake & Output 12/26/19 12/27/19 12/28/19 12/29/19 23:59 23:59 23:59 23:59 Intake Total 920 / 920 730 / 730 1431 / 1431 600 / 600 Output Total 1100 / 1100 450 / 450 Balance -180 / -180 730 / 730 981 / 981 600 / 600 Weight 142.882 kg 144.242 kg 144 kg 143.471 kg Microbiology Reports for the Last 24 Hours: Microbiology 12/26/19 16:35 Buttock - Abscess Gram Stain - Final 12/26/19 16:35 Buttock - Abscess Abscess Culture - Preliminary Gram Positive Cocci Assessment and Plan (1) Zoya-rectal abscess Current visit: Yes Status: Acute Category: Medical Code(s): K61.1 - Rectal abscess (2) Asthma, moderate persistent Current visit: Yes Status: Chronic Category: Medical Code(s): J45.40 - Moderate persistent asthma, uncomplicated (3) Essential hypertension Current visit: Yes Status: Chronic Category: Medical Code(s): I10 - Essential (primary) hypertension The patient's infection will respond to the chosen ABx?: Yes Is the patient receiving the right drug, dose, and route?: Yes Could a more targeted ABx be ordered?: No
[2019-12-29 15:20] VITALS: BP 121/77; PULSE 83; RESP 19; TEMP 36.6; O2SAT 96
--- NOTE | 2019-12-29 15:53 | PC.NURSE ---
Pt stable this shift. Complains of pain only with dressing changes. Buttock wound with beefy red tissue, good blood supply and no odor. Gets OOB and to bathroom without assistance. VSS. No issues noted this shift.
[2019-12-29 19:31] VITALS: BP 113/61; PULSE 96; RESP 20; TEMP 37.2; O2SAT 99
[2019-12-30 04:00] VITALS: BP 110/58; PULSE 86; RESP 16; TEMP 37.2; O2SAT 96
--- NOTE | 2019-12-30 04:18 | PC.NURSE ---
A&OX4. PT TOLERATING RA WELL. PT UP IN ROOM INDEPENDENTLY THIS SHIFT. PT DRESSING TO L BUTTOCK CDI. PT STATED, I CAN'T GET COMFORTABLE IN ANY POSITION. THIS NURSE OFFERED PT SOMETHING FOR PAIN AND PT RESPONDED I DON'T WANT TO TAKE ANYTHING FOR PAIN, I'LL BE OKAY. THIS NURSE EXPLAINED THE DIFFERENT TYPES OF PRN MEDS AVAILABLE FOR PAIN AND PT STATED SHE WOULD BE FINE. PT HAS HAD NO OTHER C/O THUS FAR. PT RESTING IN BED WITH EYES CLOSED MAJORITY OF SHIFT. VSS WILL CONTINUE TO MONITOR.
[2019-12-30 06:34] VITALS: BMI 45.9
[2019-12-30 06:59] LABS: Chloride 108 mmol/L (98-107); Potassium 4.4 mmoL/L (3.5-5.1); Sodium 134 mmol/L (136-145)
[2019-12-30 07:02] LABS: Anion Gap 7.4 mEq/L (5-15); Blood Urea Nitrogen 15 mg/dl (7-17); Calcium 9.3 mg/dl (8.4-10.2); Carbon Dioxide 23 mmol/L (22.0-30.0); Creatinine Clearance Estimated 39 mL/min (50-200); Estimated Glomerular Filt Rate 32 ml/min (>60); GFR (African American) 38 ML/MIN (>60); Glucose 112 mg/dl (74-100)
--- NOTE | 2019-12-30 07:10 | HMH.ACPN2 ---
Internal Medicine - PN: Subj *Date: 12/30/19 *Time: 07:10 Interval history: Patient has no complaints this morning and reports her wound feels better. She has been able to lay on her left side which previously she has been unable to do. She is not had any fevers over the last 24 hours. Exam Vital signs and Labs for Last 24 Hours: Temp Pulse Resp BP Pulse Ox 98.9 F 86 16 110/58 L 96 12/30/19 04:00 12/30/19 04:00 12/30/19 04:00 12/30/19 04:00 12/30/19 04:00 Laboratory Results - last 24 hr 12/30/19 06:21: Sodium 134 L, Potassium 4.4, Chloride 108 H, Carbon Dioxide 23, Anion Gap 7.4, BUN 15 D, Creatinine 1.70 H, Estimated Creat Clear 39, Estimated GFR 32 L, Est GFR ( Amer) 38 L, Glucose 112 H, Calcium 9.3 I & O for Last 24 hours: Intake & Output 12/27/19 12/28/19 12/29/19 12/30/19 11:59 11:59 11:59 11:59 Intake Total 1400 / 1400 780 / 780 1141 / 1141 1380 / 1380 Output Total 1100 / 1100 450 / 450 Balance 300 / 300 330 / 330 1141 / 1141 1380 / 1380 Weight 318 lb 318 lb 6 oz 316 lb 4.8 oz 310 lb Microbiology Reports for the Last 24 Hours: Microbiology 12/26/19 16:35 Buttock - Abscess Gram Stain - Final 12/26/19 16:35 Buttock - Abscess Abscess Culture - Preliminary Gram Positive Cocci Narrative: Patient looks well. Lungs have expiratory wheezes. Heart has a regular rate and rhythm. Examination of the wound on the left inferior buttock shows healthy-appearing tissues although inferiorly along the wound there is some yellow exudate. Surrounding skin is edematous and erythematous and tender inferiorly as well. Do not see any active drainage from the wound Wound culture is showing many gram-positive cocci Assessment and Plan (1) Zoya-rectal abscess Current visit: Yes Status: Acute Category: Medical Code(s): K61.1 - Rectal abscess (2) Asthma, moderate persistent Current visit: Yes Status: Chronic Category: Medical Code(s): J45.40 - Moderate persistent asthma, uncomplicated (3) Essential hypertension Current visit: Yes Status: Chronic Category: Medical Code(s): I10 - Essential (primary) hypertension - Assessment and plan all Dx Assessment and Plan for all problems:: 1. Patient is improving. Continue daily dressing changes and this may even transition to outpatient care. Await surgical evaluation and recommendations this morning. Patient may possibly be discharged
[2019-12-30 08:00] VITALS: BP 113/60; PULSE 87; RESP 18; TEMP 36.7; O2SAT 99
[2019-12-30 12:00] VITALS: BP 137/57; PULSE 78; RESP 18; TEMP 36.6; O2SAT 96
--- NOTE | 2019-12-30 12:02 | P.PN_ITS ---
Internal Medicine - PN: Subj *Date: 12/30/19 *Time: 12:02 Exam Vital signs and Labs for Last 24 Hours: Temp Pulse Resp BP Pulse Ox 98.1 F 87 18 113/60 99 12/30/19 08:00 12/30/19 08:00 12/30/19 08:00 12/30/19 08:00 12/30/19 08:00 Laboratory Results - last 24 hr 12/30/19 06:21: Sodium 134 L, Potassium 4.4, Chloride 108 H, Carbon Dioxide 23, Anion Gap 7.4, BUN 15 D, Creatinine 1.70 H, Estimated Creat Clear 39, Estimated GFR 32 L, Est GFR ( Amer) 38 L, Glucose 112 H, Calcium 9.3 I & O for Last 24 hours: Intake & Output 12/27/19 12/28/19 12/29/19 12/30/19 23:59 23:59 23:59 23:59 Intake Total 730 / 730 1431 / 1431 1380 / 1380 480 / 480 Output Total 450 / 450 Balance 730 / 730 981 / 981 1380 / 1380 480 / 480 Weight 144.242 kg 144 kg 143.471 kg 140.614 kg Microbiology Reports for the Last 24 Hours: Microbiology 12/26/19 16:35 Buttock - Abscess Gram Stain - Final 12/26/19 16:35 Buttock - Abscess Abscess Culture - Preliminary Gram Positive Cocci Assessment and Plan (1) Zoya-rectal abscess Current visit: Yes Status: Acute Category: Medical Code(s): K61.1 - Rectal abscess (2) Asthma, moderate persistent Current visit: Yes Status: Chronic Category: Medical Code(s): J45.40 - Moderate persistent asthma, uncomplicated (3) Essential hypertension Current visit: Yes Status: Chronic Category: Medical Code(s): I10 - Essent ial (primary) hypertension The patient's infection will respond to the chosen ABx?: Yes Is the patient receiving the right drug, dose, and route?: Yes Could a more targeted ABx be ordered?: No
--- NOTE | 2019-12-30 14:10 | HMH.PHAINT ---
DISCHARGE COUNSELING COMPLETED.
--- NOTE | 2020-01-03 13:19 | HMH.DCSUM ---
General - General Admission date:: 12/26/19 Discharge date: 12/30/19 HPI HPI: 54 year old female seen in office today with swollen, tender, fluctuant mass in inferior left buttock that first appearred December 20. On December 20 patient noted discomfort in the area with progressive swelling and pain by December 21. On December 21 the lesion partially ruptured which relieved some of the pain. Patient seen in office on December 22 and had abscess, suspected to be perirectal due to foul smell from wound. Patient gave history of recent diarrheal illness 4 days before mass appeared. Patient declined admission citing cost of hospitalization. In follow up today the wound was no better and was draining stool from the center of the wound. Patient denied fevers. Bowel movements were loose. Hospital Course Hospital Course: Patient was admitted and urgently taken to the OR by Dr. Corbin for I&D and debridement of necrotic perirectal abscess. Post operatievely patinet was placed on Vancomycin and Zosyn. WBC trended down. Initial dressing changes were twice daily but later performed once daily. Patient had daily improvement in pain and ability to ambulate. On 12/29 she was appropriate for discharge. She was discharged in stable condition. Patient will follow up with Dr. Corbin next week. Patient will return [facility] to [facility] [place] for dressing changes. Objective Vital signs: Temp Pulse Resp BP Pulse Ox 97.8 F 78 18 137/57 L 96 12/30/19 12:00 12/30/19 12:00 12/30/19 12:00 12/30/19 12:12/30/19 12:00 DS: Diagnosis - Discharge Diagnosis (1) Zoya-rectal abscess Status: Acute (2) Asthma, moderate persistent Status: Chronic (3) Essential hypertension Status: Chronic Discharge Plan - Patient Discharge Instructions ACTIVITY: Continue current activity DIET: continue same diet Patient Instructions: DI for Acute Pain -- Adult, DI for Anal Abscess - Follow up Plan Follow up with: Javier Corbin MD [Staff Physician] - 01/06/20 2:30 pm Disposition: Home, [facility] Medications: Home Medications Medication Instructions Recorded Confirmed Type Albuterol Sulfate [Albuterol 2 puffs IH Q6HP PRN 12/26/19 01/03/20 History Sulfate Hfa] Amoxicillin/Potassium Clav 1 tab PO BID 12/26/19 01/03/20 History [Amox-Clav 875-125 mg Tablet] Cyclobenzaprine HCl 10 mg PO TIDP PRN 12/26/19 01/03/20 History [Cyclobenzaprine 10mg Tab] Diclofenac Sodium [Diclofenac 75mg 75 mg PO BID 12/26/19 01/03/20 History Tab] Famotidine [Acid Controller] 20 mg PO BIDP PRN 12/26/19 01/03/20 History Fluticasone Propion/Salmeterol 1 puff PO BID 12/26/19 01/03/20 History [Fluticasone-Salmeterol 500-50] Gabapentin [Gabapentin 100mg Cap] 100 mg PO HS 12/26/19 01/03/20 History Loratadine [Allergy] 10 mg PO DAILY 12/26/19 01/03/20 History Simvastatin 20 mg PO HS 12/26/19 01/03/20 History lisinopriL [Lisinopril 10mg Tab] 10 mg PO DAILY 12/26/19 01/03/20 History Prescriptions/Medication Reconciliation: Continued Simvastatin 20 mg PO HS Diclofenac Sodium [Diclofenac 75mg Tab] 75 mg PO BID lisinopriL [Lisinopril 10mg Tab] 10 mg PO DAILY Cyclobenzaprine HCl [Cyclobenzaprine 10mg Tab] 10 mg PO TIDP PRN PRN Reason: Muscle Spasm Amoxicillin/Potassium Clav [Amox-Clav 875-125 mg Tablet] 1 tab PO BID Loratadine [Allergy] 10 mg PO DAILY Gabapentin [Gabapentin 100mg Cap] 100 mg PO HS Fluticasone Propion/Salmeterol [Fluticasone-Salmeterol 500-50] 1 puff PO BID Famotidine [Acid Controller] 20 mg PO BIDP PRN PRN Reason: Heartburn Albuterol Sulfate [Albuterol Sulfate Hfa] 2 puffs IH Q6HP PRN PRN Reason: asthma - Problem Reconciliation Problems Reviewed?: Yes
== END 2019-12-30 14:51 | disposition home or self-care (01) | DRG 580 ==
PROVIDERS: Surgery; Admitting Provider Family Medicine; PCP Family Medicine; Visit Provider Family Medicine
PROC: 0JD90ZZ Extraction of Buttock Subcutaneous Tissue and Fascia, Open Approach (ICD-10-PCS; principal; 2019-12-26 16:00)
DX: L02.31 Cutaneous abscess of buttock (principal); K61.1 Rectal abscess; B95.1 Streptococcus, group B, as the cause of diseases classified elsewhere; J45.40 Moderate persistent asthma, uncomplicated; I10 Essential (primary) hypertension
CPT/HCPCS: 46040; 36415; 80048; 80202; 83036; 85007; 85025; 86328; 87070; 87075; 87077; 87186; 87205; J1335; J2405; J2543; J3370

== ENCOUNTER → 2019-12-31 11:08 | Outpatient (CLI) | payer OTHER, SELFPAY ==
[2019-12-31 11:20] VITALS: BP 131/71; PULSE 101; RESP 16; TEMP 36.7; O2SAT 100
== END ==
PROVIDERS: PCP Family Medicine; Visit Provider Family Medicine
DX: K61.1 Rectal abscess (principal); Z48.00 Encounter for change or removal of nonsurgical wound dressing
CPT/HCPCS: G0463

== ENCOUNTER → 2020-01-01 11:07 | Outpatient (CLI) | payer OTHER, SELFPAY ==
[2020-01-01 11:15] VITALS: BP 124/56; PULSE 93; RESP 18; TEMP 36.9; O2SAT 91
== END ==
PROVIDERS: PCP Family Medicine; Visit Provider Family Medicine
DX: K61.1 Rectal abscess (principal); Z48.00 Encounter for change or removal of nonsurgical wound dressing
CPT/HCPCS: G0463

== ENCOUNTER 2020-01-02 11:18 | Outpatient (CLI) | payer OTHER, SELFPAY | END 2020-01-02 11:50 | disposition home or self-care (01) | LOC: INF 11:18 | PROVIDERS: Visit Provider Family Medicine | DX: K61.1 Rectal abscess (principal); Z48.00 Encounter for change or removal of nonsurgical wound dressing | CPT/HCPCS: G0463 ==

== ENCOUNTER 2020-01-03 11:16 | Outpatient (CLI) | payer OTHER, SELFPAY | END 2020-01-03 11:30 | disposition home or self-care (01) | LOC: INF 11:16 | PROVIDERS: Visit Provider Family Medicine | DX: K61.1 Rectal abscess (principal); Z48.00 Encounter for change or removal of nonsurgical wound dressing | CPT/HCPCS: G0463 ==

== ENCOUNTER 2020-01-04 11:15 | Outpatient (CLI) | payer OTHER, SELFPAY | END 2020-01-04 11:50 | disposition home or self-care (01) | LOC: INF 11:15 | PROVIDERS: Visit Provider Family Medicine | DX: K61.1 Rectal abscess (principal); Z48.00 Encounter for change or removal of nonsurgical wound dressing | CPT/HCPCS: G0463 ==

== ENCOUNTER 2020-01-05 11:13 | Outpatient (CLI) | payer OTHER, SELFPAY | END 2020-01-05 11:25 | disposition home or self-care (01) | LOC: INF 11:13 | PROVIDERS: Visit Provider Family Medicine | DX: K61.1 Rectal abscess (principal); Z48.00 Encounter for change or removal of nonsurgical wound dressing | CPT/HCPCS: G0463 ==

== ENCOUNTER 2020-01-07 11:11 | Outpatient (CLI) | payer OTHER, SELFPAY ==
[2020-01-07 11:18] VITALS: BP 145/82; PULSE 100; RESP 18; TEMP 36.6; O2SAT 95
== END 2020-01-07 11:40 | disposition home or self-care (01) ==
LOC: INF 11:11
PROVIDERS: PCP Family Medicine; Visit Provider Family Medicine
DX: K61.1 Rectal abscess (principal); Z48.00 Encounter for change or removal of nonsurgical wound dressing
CPT/HCPCS: G0463

== ENCOUNTER → 2020-01-08 11:19 | Outpatient (CLI) | payer OTHER, SELFPAY ==
[2020-01-08 11:30] VITALS: BP 131/90; PULSE 110; RESP 16; TEMP 36.7; O2SAT 95
[2020-01-08 11:45] VITALS: BP 131/90; PULSE 110; RESP 16; TEMP 36.7; O2SAT 95
== END ==
PROVIDERS: PCP Family Medicine; Visit Provider Family Medicine
DX: K61.1 Rectal abscess (principal); Z48.00 Encounter for change or removal of nonsurgical wound dressing
CPT/HCPCS: G0463

== ENCOUNTER 2020-01-09 11:16 | Outpatient (CLI) | payer OTHER, SELFPAY | END 2020-01-09 11:30 | disposition home or self-care (01) | LOC: INF 11:16 | PROVIDERS: Visit Provider Family Medicine | DX: K61.1 Rectal abscess (principal); Z48.00 Encounter for change or removal of nonsurgical wound dressing | CPT/HCPCS: G0463 ==

== ENCOUNTER 2020-01-10 11:10 | Outpatient (CLI) | payer OTHER, SELFPAY ==
[2020-01-10 11:45] VITALS: BP 135/74; PULSE 68; RESP 20; TEMP 36.9; O2SAT 95
== END 2020-01-10 11:45 | disposition home or self-care (01) ==
LOC: INF 11:13
PROVIDERS: Visit Provider Family Medicine
DX: K61.1 Rectal abscess (principal)
CPT/HCPCS: G0463

== ENCOUNTER 2020-01-11 11:12 | Outpatient (CLI) | payer OTHER, SELFPAY | END 2020-01-11 11:30 | disposition home or self-care (01) | LOC: INF 11:22 | PROVIDERS: Visit Provider Family Medicine | DX: K61.1 Rectal abscess (principal); Z48.00 Encounter for change or removal of nonsurgical wound dressing | CPT/HCPCS: G0463 ==

== ENCOUNTER 2020-01-12 11:08 | Outpatient (CLI) | payer OTHER, SELFPAY | END 2020-01-12 11:30 | disposition home or self-care (01) | LOC: INF 11:08 | PROVIDERS: Visit Provider Family Medicine | DX: K61.1 Rectal abscess (principal); Z48.00 Encounter for change or removal of nonsurgical wound dressing | CPT/HCPCS: G0463 ==

== ENCOUNTER → 2020-01-14 10:58 | Outpatient (CLI) | payer OTHER, SELFPAY ==
[2020-01-14 11:22] VITALS: BP 120/67; PULSE 91; RESP 16; TEMP 36.9; O2SAT 95
[2020-01-14 11:25] VITALS: BP 121/64; PULSE 93; RESP 18; TEMP 36.9; O2SAT 97
== END ==
PROVIDERS: PCP Family Medicine; Visit Provider Family Medicine
DX: K61.1 Rectal abscess (principal); Z48.00 Encounter for change or removal of nonsurgical wound dressing
CPT/HCPCS: G0463

== ENCOUNTER → 2020-01-15 11:05 | Outpatient (CLI) | payer OTHER, SELFPAY ==
[2020-01-15 13:00] VITALS: BP 126/82; PULSE 68; RESP 16; TEMP 36.7; O2SAT 98
== END ==
PROVIDERS: PCP Family Medicine; Visit Provider Family Medicine
DX: K61.1 Rectal abscess (principal); Z48.00 Encounter for change or removal of nonsurgical wound dressing
CPT/HCPCS: G0463

== ENCOUNTER 2020-01-16 11:13 | Outpatient (CLI) | payer OTHER, SELFPAY | END 2020-01-16 11:32 | disposition home or self-care (01) | LOC: INF 11:13 | PROVIDERS: Visit Provider Family Medicine | DX: K61.1 Rectal abscess (principal); Z48.00 Encounter for change or removal of nonsurgical wound dressing | CPT/HCPCS: G0463 ==

== ENCOUNTER 2020-01-17 11:21 | Outpatient (CLI) | payer OTHER, SELFPAY | END 2020-01-17 11:28 | disposition home or self-care (01) | LOC: INF 11:21 | PROVIDERS: Visit Provider Family Medicine | DX: K61.1 Rectal abscess (principal); Z48.00 Encounter for change or removal of nonsurgical wound dressing | CPT/HCPCS: G0463 ==

== ENCOUNTER 2020-01-18 11:03 | Outpatient (CLI) | payer OTHER, SELFPAY | END 2020-01-18 11:15 | disposition home or self-care (01) | LOC: INF 11:03 | PROVIDERS: Visit Provider Family Medicine | DX: K61.1 Rectal abscess (principal); Z48.00 Encounter for change or removal of nonsurgical wound dressing | CPT/HCPCS: G0463 ==

== ENCOUNTER 2020-01-19 11:08 | Outpatient (CLI) | payer OTHER, SELFPAY ==
--- NOTE | 2020-01-19 11:49 | PC.NURSE ---
1105 - REMOVED DRESSING FROM PT'S LEFT INNER BUTTOCK. GAUZE CONTAINED SMALL AMOUNT OF GREENISH DRAINAGE THAT HAD FOUL ODOR. PT DENIED FEVER AND CHILLS. CALLED MD TO NOTIFY OF FINDINGS. PT HAS F/U WITH DR CONTRERAS TOMORROW AND HE WILL REASSESS WOUND AT THAT TIME. IRRIGATED WOUND WITH NS. WOUND RED AND BEEFY LOOKING. PACKED WITH DRY 4X4, COVERED WITH DRY 4X4'S, AND TAPED INTO PLACE.
== END 2020-01-19 11:20 | disposition home or self-care (01) ==
LOC: INF 11:09
PROVIDERS: Visit Provider Family Medicine
DX: K61.1 Rectal abscess (principal); Z48.00 Encounter for change or removal of nonsurgical wound dressing
CPT/HCPCS: G0463

== ENCOUNTER → 2020-01-21 11:01 | Outpatient (CLI) | payer OTHER, SELFPAY ==
[2020-01-21 12:10] VITALS: BP 151/86; PULSE 96; RESP 19; TEMP 36.6; O2SAT 100
== END ==
PROVIDERS: PCP Family Medicine; Visit Provider Family Medicine
DX: K61.1 Rectal abscess (principal); Z48.00 Encounter for change or removal of nonsurgical wound dressing
CPT/HCPCS: G0463

== ENCOUNTER → 2020-01-22 10:58 | Outpatient (CLI) | payer OTHER, SELFPAY ==
[2020-01-22 11:39] VITALS: BP 120/69; PULSE 107; RESP 18; TEMP 36.6; O2SAT 98
== END ==
PROVIDERS: PCP Family Medicine; Visit Provider Family Medicine
DX: K61.1 Rectal abscess (principal); Z48.00 Encounter for change or removal of nonsurgical wound dressing
CPT/HCPCS: G0463

== ENCOUNTER 2020-01-23 11:12 | Outpatient (CLI) | payer OTHER, SELFPAY | END 2020-01-23 11:28 | disposition home or self-care (01) | LOC: INF 11:12 | PROVIDERS: Visit Provider Family Medicine | DX: K61.1 Rectal abscess (principal); Z48.00 Encounter for change or removal of nonsurgical wound dressing | CPT/HCPCS: G0463 ==

== ENCOUNTER 2020-01-24 11:15 | Outpatient (CLI) | payer OTHER, SELFPAY | END 2020-01-24 11:35 | disposition home or self-care (01) | LOC: INF 11:15 | PROVIDERS: Visit Provider Family Medicine | DX: K61.1 Rectal abscess (principal) | CPT/HCPCS: G0463 ==

== ENCOUNTER 2020-01-25 11:05 | Outpatient (CLI) | payer OTHER, SELFPAY | END 2020-01-25 11:24 | disposition home or self-care (01) | LOC: INF 11:05 | PROVIDERS: Visit Provider Family Medicine | DX: K61.1 Rectal abscess (principal) | CPT/HCPCS: G0463 ==

== ENCOUNTER 2020-01-26 10:58 | Outpatient (CLI) | payer OTHER, SELFPAY | END 2020-01-26 11:15 | disposition home or self-care (01) | LOC: INF 10:58 | PROVIDERS: Visit Provider Family Medicine | DX: K61.1 Rectal abscess (principal) | CPT/HCPCS: G0463 ==

== ENCOUNTER 2020-01-27 11:15 | Outpatient (CLI) | payer OTHER, SELFPAY | END 2020-01-27 11:30 | disposition home or self-care (01) | LOC: INF 11:15 | PROVIDERS: Visit Provider Family Medicine | DX: K61.1 Rectal abscess (principal) | CPT/HCPCS: G0463 ==

== ENCOUNTER → 2020-01-28 11:17 | Outpatient (CLI) | payer OTHER, SELFPAY ==
[2020-01-28 11:30] VITALS: BP 118/81; PULSE 83; RESP 16; TEMP 36.8; O2SAT 98
== END ==
PROVIDERS: PCP Family Medicine; Visit Provider Family Medicine
DX: K61.1 Rectal abscess (principal)
CPT/HCPCS: G0463

== ENCOUNTER → 2020-01-29 11:08 | Outpatient (CLI) | payer OTHER, SELFPAY ==
[2020-01-29 11:08] VITALS: BP 141/72; PULSE 78; RESP 18; TEMP 36.6; O2SAT 98
[2020-01-29 11:20] VITALS: BP 136/74; PULSE 81; RESP 18; TEMP 36.6; O2SAT 97
== END ==
PROVIDERS: PCP Family Medicine; Visit Provider Family Medicine
DX: K61.1 Rectal abscess (principal)
CPT/HCPCS: G0463

== ENCOUNTER 2020-01-30 11:12 | Outpatient (CLI) | payer OTHER, SELFPAY ==
[2020-01-30 12:00] VITALS: BP 129/76; PULSE 89; RESP 18; TEMP 36.8; O2SAT 98
[2020-01-30 12:24] VITALS: BP 129/76
--- NOTE | 2020-01-30 12:25 | PC.NURSE ---
1200: OLD DRESSING REMOVED. CLEANSED AREA WITH NS. PACKED DRY STERILE 4X4 INTO WOUND BED. TAPE PLACED OVER 4X4 TO SECURE DRESSING. WOUND BED BEEFY RED, NO DRAINAGE NOTED. PATIENT TOLERATED DRESSING CHANGE WELL.
== END 2020-01-30 12:15 | disposition home or self-care (01) ==
LOC: INF 11:13
PROVIDERS: PCP Family Medicine; Visit Provider Family Medicine
DX: K61.1 Rectal abscess (principal)
CPT/HCPCS: G0463

== ENCOUNTER 2020-01-31 11:11 | Outpatient (CLI) | payer OTHER, SELFPAY | END 2020-01-31 11:36 | disposition home or self-care (01) | LOC: INF 11:11 | PROVIDERS: Visit Provider Family Medicine | DX: K61.1 Rectal abscess (principal) | CPT/HCPCS: G0463 ==

== ENCOUNTER 2020-02-02 11:15 | Outpatient (CLI) | payer OTHER, SELFPAY | END 2020-02-02 11:30 | disposition home or self-care (01) | LOC: INF 11:15 | PROVIDERS: Visit Provider Family Medicine | DX: K61.1 Rectal abscess (principal) | CPT/HCPCS: G0463 ==

== ENCOUNTER 2020-02-04 11:02 | Outpatient (CLI) | payer OTHER, SELFPAY ==
[2020-02-04 11:15] VITALS: BP 115/49; PULSE 102; RESP 18; TEMP 36.6; O2SAT 100
--- NOTE | 2020-02-04 11:48 | PC.NURSE ---
dressing change done per order. no issues noted tolerated well.
== END 2020-02-04 11:20 | disposition home or self-care (01) ==
LOC: INF 11:02
PROVIDERS: PCP Family Medicine; Visit Provider Family Medicine
DX: K61.1 Rectal abscess (principal); Z48.00 Encounter for change or removal of nonsurgical wound dressing
CPT/HCPCS: G0463

== ENCOUNTER 2020-02-06 11:13 | Outpatient (CLI) | payer OTHER, SELFPAY | END 2020-02-06 11:43 | disposition home or self-care (01) | LOC: INF 11:13 | PROVIDERS: Visit Provider Family Medicine | DX: K61.1 Rectal abscess (principal); Z48.00 Encounter for change or removal of nonsurgical wound dressing | CPT/HCPCS: G0463 ==

== ENCOUNTER 2020-02-07 11:12 | Outpatient (CLI) | payer OTHER, SELFPAY | END 2020-02-07 11:40 | disposition home or self-care (01) | LOC: INF 11:12 | PROVIDERS: Visit Provider Family Medicine | DX: K61.1 Rectal abscess (principal); Z48.00 Encounter for change or removal of nonsurgical wound dressing | CPT/HCPCS: G0463 ==

== ENCOUNTER 2020-02-08 11:17 | Outpatient (CLI) | payer OTHER, SELFPAY | END 2020-02-08 11:40 | disposition home or self-care (01) | LOC: INF 11:17 | PROVIDERS: Visit Provider Family Medicine | DX: K61.1 Rectal abscess (principal); Z48.00 Encounter for change or removal of nonsurgical wound dressing | CPT/HCPCS: G0463 ==

== ENCOUNTER 2020-02-09 11:00 | Outpatient (CLI) | payer OTHER, SELFPAY | END 2020-02-09 11:20 | disposition home or self-care (01) | LOC: INF 11:00 | PROVIDERS: Visit Provider Family Medicine | DX: K61.1 Rectal abscess (principal); Z48.00 Encounter for change or removal of nonsurgical wound dressing | CPT/HCPCS: G0463 ==

== ENCOUNTER 2020-02-10 11:29 | Outpatient (CLI) | payer OTHER, SELFPAY | END 2020-02-10 11:40 | disposition home or self-care (01) | LOC: INF 11:30 | PROVIDERS: Visit Provider Family Medicine | DX: K61.1 Rectal abscess (principal); Z48.00 Encounter for change or removal of nonsurgical wound dressing | CPT/HCPCS: G0463 ==

== ENCOUNTER → 2020-02-11 11:20 | Outpatient (CLI) | payer OTHER, SELFPAY ==
[2020-02-11 11:20] VITALS: BP 137/78; PULSE 79; RESP 18; TEMP 36.6; O2SAT 98
[2020-02-11 11:35] VITALS: BP 134/81; PULSE 80; RESP 16; TEMP 36.6; O2SAT 98
== END ==
PROVIDERS: PCP Family Medicine; Visit Provider Family Medicine
DX: K61.1 Rectal abscess (principal); Z48.00 Encounter for change or removal of nonsurgical wound dressing
CPT/HCPCS: G0463

== ENCOUNTER → 2020-02-12 11:22 | Outpatient (CLI) | payer OTHER, SELFPAY ==
[2020-02-12 11:22] VITALS: BP 139/73; PULSE 77; RESP 18; TEMP 36.8; O2SAT 96
[2020-02-12 11:35] VITALS: BP 136/70; PULSE 80; RESP 18; TEMP 36.7; O2SAT 98
== END ==
PROVIDERS: PCP Family Medicine; Visit Provider Family Medicine
DX: K61.1 Rectal abscess (principal)
CPT/HCPCS: G0463

== ENCOUNTER 2020-02-13 11:24 | Outpatient (CLI) | payer OTHER, SELFPAY | END 2020-02-13 11:42 | disposition home or self-care (01) | LOC: INF 11:24 | PROVIDERS: Visit Provider Family Medicine | DX: K61.1 Rectal abscess (principal); Z48.00 Encounter for change or removal of nonsurgical wound dressing | CPT/HCPCS: G0463 ==

== ENCOUNTER 2020-02-14 11:16 | Outpatient (CLI) | payer OTHER, SELFPAY | END 2020-02-14 11:35 | disposition home or self-care (01) | PROVIDERS: Visit Provider Family Medicine | DX: K61.1 Rectal abscess (principal); Z48.00 Encounter for change or removal of nonsurgical wound dressing | CPT/HCPCS: G0463 ==

== ENCOUNTER 2020-02-15 17:15 | Outpatient (CLI) | payer OTHER, SELFPAY ==
--- NOTE | 2020-02-15 19:28 | PC.NURSE ---
1730: old dressing removed. Area to buttock started bleeding from tape that was on dressing. cleansed aread with NS. applied dry sterile 4x4 to open wound. Sterile 2x2 applied over bleeding area. dsg taped. patient tolerated well.
== END 2020-02-15 17:45 | disposition home or self-care (01) ==
LOC: INF 17:17
PROVIDERS: PCP Family Medicine; Visit Provider Family Medicine
DX: K61.1 Rectal abscess (principal); Z48.00 Encounter for change or removal of nonsurgical wound dressing
CPT/HCPCS: G0463

== ENCOUNTER 2020-02-16 11:12 | Outpatient (CLI) | payer OTHER, SELFPAY | END 2020-02-16 11:30 | disposition home or self-care (01) | LOC: INF 11:12 | PROVIDERS: Visit Provider Family Medicine | DX: K61.1 Rectal abscess (principal); Z48.00 Encounter for change or removal of nonsurgical wound dressing | CPT/HCPCS: G0463 ==

== ENCOUNTER 2020-02-17 11:15 | Outpatient (CLI) | payer OTHER, SELFPAY | END 2020-02-17 11:25 | disposition home or self-care (01) | LOC: INF 11:17 | PROVIDERS: Visit Provider Family Medicine | DX: K61.1 Rectal abscess (principal); Z48.00 Encounter for change or removal of nonsurgical wound dressing | CPT/HCPCS: G0463 ==

== ENCOUNTER → 2020-02-18 11:49 | Outpatient (CLI) | payer OTHER, SELFPAY ==
[2020-02-18 12:32] VITALS: BP 127/85; PULSE 90; RESP 19; TEMP 36.8; O2SAT 94
== END ==
PROVIDERS: PCP Family Medicine; Visit Provider Family Medicine
DX: K61.1 Rectal abscess (principal)

== ENCOUNTER → 2020-02-19 19:08 | Outpatient (CLI) | payer OTHER, SELFPAY ==
[2020-02-19 20:02] VITALS: BP 111/64; PULSE 83; RESP 16; TEMP 36.7; O2SAT 100
== END ==
PROVIDERS: PCP Family Medicine; Visit Provider Family Medicine
DX: K61.1 Rectal abscess (principal); Z48.00 Encounter for change or removal of nonsurgical wound dressing
CPT/HCPCS: G0463

== ENCOUNTER 2020-02-20 11:20 | Outpatient (CLI) | payer OTHER, SELFPAY | END 2020-02-20 11:30 | disposition home or self-care (01) | LOC: INF 11:21 | PROVIDERS: Visit Provider Family Medicine | DX: K61.1 Rectal abscess (principal); Z48.00 Encounter for change or removal of nonsurgical wound dressing | CPT/HCPCS: G0463 ==

== ENCOUNTER 2020-02-21 11:26 | Outpatient (CLI) | payer OTHER, SELFPAY | END 2020-02-21 11:32 | disposition home or self-care (01) | LOC: INF 11:26 | PROVIDERS: Visit Provider Family Medicine | DX: K61.1 Rectal abscess (principal); Z48.00 Encounter for change or removal of nonsurgical wound dressing | CPT/HCPCS: G0463 ==

== ENCOUNTER 2020-02-22 11:22 | Outpatient (CLI) | payer OTHER, SELFPAY | END 2020-02-22 11:30 | disposition home or self-care (01) | LOC: INF 11:22 | PROVIDERS: Visit Provider Family Medicine | DX: K61.1 Rectal abscess (principal); Z48.00 Encounter for change or removal of nonsurgical wound dressing | CPT/HCPCS: G0463 ==

== ENCOUNTER 2020-02-23 11:33 | Outpatient (CLI) | payer OTHER, SELFPAY | END 2020-02-23 11:40 | disposition home or self-care (01) | LOC: INF 11:33 | PROVIDERS: Visit Provider Family Medicine | DX: K61.1 Rectal abscess (principal); Z48.00 Encounter for change or removal of nonsurgical wound dressing | CPT/HCPCS: G0463 ==

== ENCOUNTER → 2020-08-01 07:53 | Outpatient (CLI) | payer OTHER, SELFPAY ==
--- NOTE | 2020-08-01 08:06 | US_ITS ---
PROCEDURE: US LIVER CLINICAL INDICATION: ELEVATED ALKALINE PHOSPHATASE LEVEL COMPARISON: No exams were available for comparison FINDINGS: PANCREAS: Unremarkable. No obvious mass or abnormal fluid collection. No ductal dilatation LIVER: Diffuse increased echogenicity of the liver with poor through transmission of sound consistent with hepatic steatosis. No focal liver lesion demonstrated. There is appropriate direction of blood flow within non dilated portal vein. RIGHT KIDNEY: Unremarkable. Normal size and echogenicity. No hydronephrosis GALLBLADDER: No gallstones, gallbladder wall thickening, pericholecystic fluid, or biliary dilatation. IMPRESSION: Fatty liver otherwise negative Dictated by: Smith Bolton MD 08/01/2020 18:20 Smith Bolton MD in [place] 08/01/2020 18:20
== END ==
PROVIDERS: PCP Family Medicine; Visit Provider Nurse Practitioner Family
DX: R74.8 Abnormal levels of other serum enzymes (principal)
CPT/HCPCS: 76705

== ENCOUNTER → 2021-07-12 11:58 | Outpatient (CLI) | payer OTHER, SELFPAY ==
--- NOTE | 2021-07-12 12:13 | XR_ITS ---
FINAL REPORT CLINICAL HISTORY: INJURY OF RIGHT KNEE, ANTERIOR KNEE PAIN, SWELLING FINDINGS: RIGHT KNEE Two views of the right knee reveal no evidence of fracture or dislocation. The bony alignment is normal. There are mild degenerative changes. There is a small joint effusion. No localized soft tissue abnormality is identified. IMPRESSION: Small joint effusion with no acute bony abnormality. Reviewed, Interpreted and Dictated by Javier Shelton III, MD Transcribed by Charito Prescott Authenticated by Javier Shelton III, MD on 07/12/2021 02:28:02 PM [facility]
[2021-07-12 13:51] LABS: Uric Acid 7.5 mg/dl (2.5-6.2)
== END ==
PROVIDERS: PCP Nurse Practitioner Family; Visit Provider Nurse Practitioner Family
DX: M25.561 Pain in right knee (principal); M25.461 Effusion, right knee; S89.91XA Unspecified injury of right lower leg, initial encounter
CPT/HCPCS: 36415; 73562; 84550

== ENCOUNTER → 2021-08-15 09:31 | Outpatient (CLI) | payer OTHER, SELFPAY ==
--- NOTE | 2021-08-15 09:36 | MR_ITS ---
FINAL REPORT CLINICAL HISTORY: INJURY OF RT KNEE, INITIAL ENCOUNTER, RT ANTERIOR KNEE PAIN. RT KNEE SWELLING AND INSTABILITY. NO INJURY OR TRAUMA. MEDIAL SIDED KNEE PAIN X3-4WKS. PRIOR X-RAY 07-12-21 FINDINGS: Multi planar MR imaging was performed of the right knee. There is edema along the course of the anterior cruciate ligament but the ligament appears intact. The posterior cruciate ligament is intact. The quadriceps and patellar tendons are intact. The medial and lateral menisci are intact without evidence of tear. The medial and lateral collateral ligaments appear intact. The medial and lateral retinacula appear intact. There are multiple osteochondral lesions along the articular surface of the medial femoral condyle measuring up to 0.8 cm in greatest dimensions. There are small osteochondral lesions along the lateral articular facet of the patella best seen on axial imaging. A small joint effusion is present. There is a moderate popliteal cyst measuring 7.7 cm in craniocaudal dimensions. IMPRESSION: Multiple osteochondral lesions along the medial femoral condyle and lateral articular facet of the patella. Moderate popliteal cyst. Mild edema along the course of the anterior cruciate ligament. Reviewed, Interpreted and Dictated by Dong Torrez MD Transcribed by Jordan Santos Authenticated by Dong Torrez MD on 08/15/2021 11:23:03 AM [facility]
== END ==
PROVIDERS: PCP Nurse Practitioner Family; Visit Provider Nurse Practitioner Family
DX: S89.91XA Unspecified injury of right lower leg, initial encounter (principal); M25.561 Pain in right knee; M25.461 Effusion, right knee
CPT/HCPCS: 73721

== ENCOUNTER → 2022-09-11 12:05 | Outpatient (CLI) | payer OTHER, SELFPAY ==
--- NOTE | 2022-09-11 12:12 | XR_ITS ---
FINAL REPORT CLINICAL HISTORY: Shortness of breath COMPARISON: 05/17/2017 FINDINGS: Two views of the chest were obtained. The heart size and pulmonary vascularity are within normal limits. The mediastinum is normal. No acute pulmonary abnormality is identified. There is no pneumothorax. The bony thorax is intact. IMPRESSION: No active cardiopulmonary disease. Reviewed, Interpreted and Dictated by Javier Shelton III, MD Transcribed by Dona Carpenter Authenticated and [facility]
[2022-09-11 13:31] LABS: Basophils # 0.1 K/mm3 (0-0.2); Basophils % 0.6 % (0.1-2.0); Eosinophils # 0.5 K/mm3 (0.0-0.4); Eosinophils % 4.8 % (0.1-12.0); Hematocrit 42.9 % (37.0-47.0); Hemoglobin 13.7 g/dL (12.2-16.2); Lymphocytes # 2.7 K/mm3 (0.7-4.5); Lymphocytes % 24.4 % (10-50); Mean Corpuscular HGB Conc 31.9 g/dL (31.8-35.4); Mean Corpuscular Hemoglobin 27.3 pg (27.0-31.2); Mean Corpuscular Volume 85.6 fl (81-99); Mean Platelet Volume 9.2 fl (7.4-10.4); Monocytes # 0.4 K/mm3 (0.1-1.0); Monocytes % 3.8 % (1.7-9.3); Neutrophils # 7.3 K/mm3 (1.8-7.8); Neutrophils % 66.4 % (37.0-80.0); Platelet Count 377 K/mm3 (142-424); Red Blood Count 5.01 M/mm3 (4.20-5.40); White Blood Count 10.9 K/mm3 (4.8-10.8)
[2022-09-11 13:54] LABS: Alanine Aminotransferase 21 U/L (12-78); Albumin/Globulin Ratio 1.4 (1.1-1.8); Alkaline Phosphatase 145 U/L (38-126); Anion Gap 11.1 mEq/L (5-15); Aspartate Amino Transferase 22 U/L (14-36); Bilirubin,Total 0.4 mg/dl (0.2-1.3); Blood Urea Nitrogen 24 mg/dl (7-17); Calcium 9.9 mg/dl (8.4-10.2); Carbon Dioxide 30 mmol/L (22.0-30.0); Chloride 102 mmol/L (98-107); Estimated Glomerular Filt Rate 36 ml/min (>60); GFR (African American) 44 ML/MIN (>60); Globulin 2.9 g/dL (1.3-3.2); Glucose 91 mg/dl (74-100); Potassium 5.1 mmoL/L (3.5-5.1); Sodium 138 mmol/L (136-145); Total Protein,Serum 6.9 g/dl (6.3-8.2)
[2022-09-11 14:03] LABS: NT Pro Brain Natriuretic Pep. 88.9 pg/mL (0-125)
[2022-09-11 14:25] LABS: Thyroid Stimulating Hormone 3.18 uIU/mL (0.465-4.68)
== END ==
PROVIDERS: PCP Nurse Practitioner Family; Visit Provider Nurse Practitioner Family
DX: R06.02 Shortness of breath (principal); R60.0 Localized edema
CPT/HCPCS: 36415; 71046; 80053; 83880; 84443; 85025

== ENCOUNTER → 2022-09-23 15:30 | Outpatient (CLI) | payer OTHER, SELFPAY ==
--- NOTE | 2022-09-23 15:35 | CA_ITS ---
FINAL REPORT TECHNIQUE: Ultrasound images of the deep venous system were obtained from the left groin to the calf veins. CLINICAL HISTORY: dyspnea/edema, obesity FINDINGS: The deep venous system is normally compressible. Normal flow is identified. IMPRESSION: No evidence of left lower extremity DVT. Reviewed, Interpreted and Dictated by Dong Torrez MD Transcribed by Jordan Santos Authenticated and [facility]
== END ==
LOC: RT 15:31
PROVIDERS: PCP Nurse Practitioner Family; Visit Provider Internal Medicine
DX: R06.00 Dyspnea, unspecified (principal); R60.0 Localized edema
CPT/HCPCS: 93971

== ENCOUNTER → 2022-10-21 06:12 | Outpatient (CLI) | payer OTHER, SELFPAY ==
--- NOTE | 2022-10-21 06:13 | CA_ITS ---
APPROVED REPORT Exam: Pharmacologic Technologist: Delores Bardales, Ht: 5 ft 9 in Wt: 361 lbs BSA: 2.66 m2 HR: 74 bpm BP: 100/56 mmHg Rhythm: NSR,LOW VOLTAGE QRS Medical History Medical History: HTN, Hyperlipidemia Medications: Lisinopril,,,,, Potassium Chloride,,,,, Simvastatin,,,,, Gabapentin,,,,, Naproxen,,,,, Albuterol,,,,, Montelukast,,,,, Famotidine,,,,, LoraTADINE,,,,, Trelegy,,,,, Furosemide,,,,, CyclobenzOPRINE,,,,, Allergies: ORANGE Cardiac Risk Factors: HTN, Hyperlipidemia, FHX of CAD Stress Test Details Test: LEXISCAN HR Resting HR: 71 bpm Max Heart Rate (APMHR): 166 bpm Max HR Achieved: 103 bpm Target HR (85% APMHR): 141 bpm % of APMHR: 62 Recovery HR: 83 bpm BP Resting BP: 100.0/56.0 mmHg Max BP: 111.0/57.0 mmHg Recovery BP: 108.0/53.0 mmHg ECG Resting ECG: NSR, T-wave changes in the septal leads ST Change: None Arrhythmia: VPC's Recovery Arrhythmia: VPC Clinical Exercise duration: 04:01 min Highest Stage Achieved: Exercise capacity: n/a METs Stress ECG Conclusion DURING INFUSION PATIENT HAD SOA,CHEST PRESSURE AND HEAD DISCOMFORT. OCCASIONAL PVCS WERE PRESENT DURING STRESS AND AT RECOVERY. UNREMARKABLE LEXISCAN STRESS, MYOVIEW IMAGES REPORTED SEPARATELY. Test Summary REST 06:15 . . 71 . 100/ 56 . . Stage 1 . . . . . . . Myoview Injected Stage 1 01:00 . . 99 . . . . Stage 2 01:00 . . 93 . . . . Stage 3 01:00 . . 85 . 111/ 57 . . Stage 4 01:00 . . 86 . 100/ 55 . . Stage 4 01:01 . . 86 . 100/ 55 . Stop exercise at 04:01 RECOVERY 01:00 . . 91 . 96/ 55 . . RECOVERY 02:00 . . 84 . 103/ 56 . . RECOVERY 03:00 . . 84 . 108/ 53 . . RECOVERY 03:21 . . 87 . 108/ 53 . . Electronically signed by : Pau Alfonso, 10/22/2022 19:13:41
--- NOTE | 2022-10-21 06:13 | NM_ITS ---
APPROVED REPORT Exam: Nuclear Stress Test Indication: obesity, htn, hyperlipidemia, tob use, fm hx, sob, palpitations, fatigue Patient Location: Outpatient Stress Tech: Delores Bardales ND Tech:Sherri Mccollum ROZ RT (R)(N)(M) Ht: 5 ft 9 in Wt: 243 lbs Bra Size: D HR: 74 bpm BP: 100/56 mmHg BSA: 2.24 m2 Rhythm: NSR TID: 1.51 BMI: 35.8 History: obesity, htn, hyperlipidemia, tob use, fm hx, sob, palpitations, fatigue Procedure: Patient received 0.4 mg of intravenous Lexiscan, resting heart rate 74 bpm, resting blood pressure 100/56 mmHg, with Lexiscan maximum heart rate achieved was 97 bpm which is % of the maximum predicted heart rate and blood pressure was 111/57 mmHg. PT C/O CHEST PRESSURE WITH LEXISCAN Cardiac Stress and Resting SPECT Images: Cardiac Stress and Resting SPECT images were obtained using technetium 99m Myoview 30.2 mCi stress and 10.28 mCi at rest. Resting and supine stress imaging demonstrate 2 large, reversible perfusion defects in the anterior and inferior LV delatorre that resolved with prone stress imaging. Findings are most suggestive of soft tissue artifact, but true perfusion defects cannot be completely ruled out There is marked increase in the transient ischemic dilatation ratio (TID=1.51), suggestive of possible balanced ischemia or multivessel disease. Gated imaging demonstrates normal LV global and regional systolic function. LVEF is calculated at 69%. Conclusion: Resting and supine stress imaging demonstrate 2 large, reversible perfusion defects in the anterior and inferior LV delatorre that resolved with prone stress imaging. Findings are most suggestive of soft tissue artifact, but true perfusion defects cannot be completely ruled out There is marked increase in the transient ischemic dilatation ratio (TID=1.51), suggestive of possible balanced ischemia or multivessel disease. Gated imaging demonstrates normal LV global and regional systolic function. LVEF is calculated at 69%. Electronically signed by : Pau Alfonso, 10/22/2022 19:21:16
== END ==
LOC: RAD 06:13
PROVIDERS: PCP Nurse Practitioner Family; Visit Provider Nurse Practitioner
DX: R06.00 Dyspnea, unspecified (principal); R07.9 Chest pain, unspecified; I10 Essential (primary) hypertension; R60.0 Localized edema; E78.5 Hyperlipidemia, unspecified; Z72.0 Tobacco use; Z82.49 Family history of ischemic heart disease and other diseases of the circulatory system
CPT/HCPCS: 78452; 93017; 93306; A9502; J2785

== ENCOUNTER 2022-10-31 07:59 | Day surgery (SDC) | payer OTHER, SELFPAY ==
[2022-10-31] VITALS (10 sets, daily range): BP systolic 90–151; BP diastolic 52–113; PULSE 71–82; RESP 15–20; O2SAT 94–98; BMI 52.8
--- NOTE | 2022-10-31 07:09 | IR_ITS ---
APPROVED REPORT Patient Location: Outpatient PROCEDURES Left heart catheterization Left ventriculogram Selective coronary angiogram INDICATION Angina pectoris, Abnormal Myoview Informed consent was obtained prior to the procedure. COMPLICATIONS None Estimated Blood Loss: Less than 10 mls TECHNIQUE One percent lidocaine used to anesthetize the right anterior aspect of the wrist. The right radial artery was accessed via the Seldinger technique. A 6 [place] sheath was placed in the right radial artery. 150 mg magnesium sulfate, 800 mcg of nitroglycerin, 1mg Lidocaine and 5000 U Heparin were given through the arterial sheath. The papa catheter was also used to perform left heart catheterization, left ventriculogram and selective coronary angiogram. At the end of the procedure the sheath was removed good hemostasis was achieved using Traclet band, patient was transferred to the postop holding area in stable condition. ANGIOGRAPHIC RESULTS The left main artery Normal The left anterior descending artery Has a proximal eccentric 30 to 40% stenosis The circumflex artery Nondominant normal The right coronary artery Dominant normal The KHAN ventriculogram reveals Normal 65% The left ventricular end-diastolic pressure 20-25 mmHg IMPRESSION Mild to moderate proximal LAD disease as described above Normal ejection fraction Elevated LVEDP PLAN 1. Aggressive risk factor modification 2. LDL less than 55 achieved high intensity statin 3. Increase diuretics in order to improve diastolic dysfunction 4. Avoidance of tobacco products Electronically signed by : Brad Scott MD 10/31/2022 13:20:42
[2022-10-31 09:05] LABS: Basophils # 0.1 K/mm3 (0-0.2); Basophils % 0.6 % (0.1-2.0); Eosinophils # 0.5 K/mm3 (0.0-0.4); Eosinophils % 4.5 % (0.1-12.0); Hemoglobin 13.4 g/dL (12.2-16.2); Lymphocytes # 2.7 K/mm3 (0.7-4.5); Lymphocytes % 25.2 % (10-50); Mean Corpuscular HGB Conc 31.8 g/dL (31.8-35.4); Mean Corpuscular Volume 84.8 fl (81-99); Mean Platelet Volume 8.8 fl (7.4-10.4); Monocytes # 0.4 K/mm3 (0.1-1.0); Monocytes % 3.7 % (1.7-9.3); Neutrophils # 7.1 K/mm3 (1.8-7.8); Platelet Count 371 K/mm3 (142-424); Red Blood Count 4.95 M/mm3 (4.20-5.40); Red Cell Distribution Width 15.3 % (11.5-17.5); White Blood Count 10.7 K/mm3 (4.8-10.8)
[2022-10-31 09:12] LABS: Chloride 105 mmol/L (98-107)
[2022-10-31 09:13] LABS: Potassium 4.9 mmoL/L (3.5-5.1); Sodium 139 mmol/L (136-145)
[2022-10-31 09:16] LABS: Anion Gap 14.9 mEq/L (5-15); Blood Urea Nitrogen 24 mg/dl (7-17); Calcium 9.3 mg/dl (8.4-10.2); Carbon Dioxide 24 mmol/L (22.0-30.0); Creatinine Clearance Estimated 52 mL/min (50-200); Estimated Glomerular Filt Rate 43 ml/min (>60); GFR (African American) 52 ML/MIN (>60); Glucose 109 mg/dl (74-100)
== END 2022-10-31 14:37 | disposition home or self-care (01) ==
PROVIDERS: PCP Nurse Practitioner Family; Visit Provider Internal Medicine
DX: I25.118 Atherosclerotic heart disease of native coronary artery with other forms of angina pectoris (principal); R94.39 Abnormal result of other cardiovascular function study; F17.210 Nicotine dependence, cigarettes, uncomplicated; I10 Essential (primary) hypertension; Z79.899 Other long term (current) drug therapy; Z82.49 Family history of ischemic heart disease and other diseases of the circulatory system; E78.5 Hyperlipidemia, unspecified
CPT/HCPCS: 80048; 85025; 93458; 99152; C1725; C1760; C1769; J1644; Q9967

== ENCOUNTER 2023-06-12 12:30 | Outpatient (CLI) | payer BC, SELFPAY ==
--- NOTE | 2023-06-12 12:30 | NM_ITS ---
APPROVED REPORT Exam: Nuclear Stress Test Indication: Chest pain, SOB, Palpitations, Fatigue, Dizziness, HTN, High cholesterol, Tobacco use, Family history Patient Location: Outpatient Stress Tech: Hazel Cardenas [place] Tech:Priyanka Lynn, ARRT, RT (R)(N) Ht: 5 ft 9 in Wt: 342 lbs Bra Size: 54C HR: 80 bpm BP: 109/61 mmHg BSA: 2.59 m2 Rhythm: NSR TID: 1.26 BMI: 50.4 History: Chest pain, SOB, Palpitations, Fatigue, Dizziness, HTN, High cholesterol, Tobacco use, Family history Procedure: Patient received 0.4 mg of intravenous Lexiscan, resting heart rate 80 bpm, resting blood pressure 109/61 mmHg, with Lexiscan maximum heart rate achieved was 126 bpm which is % of the maximum predicted heart rate and blood pressure was 128/71 mmHg. With Lexiscan, patient denied any complaint of chest pain. The patient could not lie on her abdomen. Therefore, prone stress imaging could not be performed. Cardiac Stress and Resting SPECT Images: Cardiac Stress and Resting SPECT images were obtained using technetium 99m Myoview 32.5 mCi stress and 10.52 mCi at rest. The patient could not lie on her abdomen. Therefore, prone stress imaging could not be performed. This may affect the diagnostic interpretation of the study findings. Resting and stress imaging in supine positions demonstrate no evidence of fixed or reversible perfusion defects. There is increased transient ischemic dilatation ratio (TID 1.26), suggestive of possible balanced ischemia or multivessel disease. Gated imaging demonstrates normal global LV systolic function. The septal LV wall appears mildly hypokinetic. LVEF is calculated at 68%. Conclusion: No evidence of fixed or reversible perfusion defects. There is increased transient ischemic dilatation ratio (TID 1.26), suggestive of possible balanced ischemia or multivessel disease. Gated imaging demonstrates normal global LV systolic function. The septal LV wall appears mildly hypokinetic. LVEF is calculated at 68%. Electronically signed by : Pau Alfonso MD 06/14/2023 19:56:39
[2023-06-12] MEDS: REGADENOSON 0.4MG/5ML SYRINGE 0.400000000000000022 MG IV (13:40)
[2023-06-12] MEDS: SODIUM CHLORIDE 0.9% 10ML SYR (RAD ONLY) 10 ML IV ×2 (13:40→13:41)
[2023-06-12] MEDS: ISOTOPE MYOVIEW (PER STUDY) 1 DOSE IV (13:41)
--- NOTE | 2023-06-12 13:51 | CA_ITS ---
APPROVED REPORT EXAM: Comprehensive 2D, Doppler, and color-flow Echocardiogram Laborer Pipelines: Henrietta Corbin CRT Ht: 5 ft 9 in Wt: 363lbs BSA: 2.66 BP: 134/80 mmHg Indications: Chest Pain, COPD, Diabetes, Obesity, Peripheral Edema 2D Dimensions Left Atrium 3.37 cm LA Volume 36.30 mL LVOT 1.94 cm (M/F) 1.5-2.5 LA Volume Index 13.60 mL/m2 (M/F) 16-34 EF AP4 68.60 % GL Strain -21.1 % M-Mode Dimensions RVDd 2.79 cm (0.9-2.6) LVDd 5.51 cm (3.5-5.7) Ao Diam 4.07 cm (2.0-3.7) LVDs 3.92 cm (3.5-5.7) IVSd 1.43 cm (0.6-1.1) PWd 0.45 cm (0.6-1.1) EF (Teich) 54.90% FS 28.90% EDV (Teich) 148.00 mL TAPSE 2.26 (<1.7) ESV (Teich) 66.70 mL LV Diastology E Decel Time 358 (160-240 msec) E/A Ratio 1.27 MED E' 8.9 (>= 7 cm/sec) MED A' 13.20 cm/s E'/MED E' Ratio 7.99 (<= 14) LAT E' 7.2 (>= 10 cm/sec) LAT A' 9.70 cm/s E/LAT E' Ratio 9.87 (<= 14) Aortic Valve AoV Peak Ramu. 164.0 (50-130 cm/s) AO Peak GR. 10.80 mmHg Mitral Valve MV E Max Ramu. 71.0 (40-130 cm/s) MV A Velocity 56.0 (40-130 cm/s) E/A Ratio 1.27 MV Decel. Time 358 (160-240 ms) Tricuspid Valve TR P. Velocity 150.00 cm/s RAP Estimate 10.00 mmHg RVSP 19.10 mmHg Left Ventricle The left ventricle is normal size. The left ventricular systolic function is normal. The left ventricular ejection fraction is within the normal range. There is normal left ventricular wall thickness. There is normal LV segmental wall motion. The left ventricular diastolic function is normal. LVEF is 55%. Right Ventricle RV size is difficult to estimate due to poor visualization of the RV free wall, but grossly the RV appears normal in size. The right ventricular systolic function is normal. There is increased RV wall thickness. Atria The left atrium size is normal. The right atrium size is normal. There is no Doppler evidence of interatrial shunt. Aortic Valve The aortic valve is normal in structure. There is no aortic valvular stenosis. No aortic regurgitation is present. Mitral Valve The mitral valve is normal in structure. No evidence of mitral valve stenosis. Trace mitral regurgitation. Tricuspid Valve The tricuspid valve leaflets are thin and pliable. Trace tricuspid regurgitation. RVSP is normal. Pulmonic Valve The pulmonary valve is normal in structure. Trace pulmonic regurgitation. Great Vessels The aortic root is normal in size. The ascending aorta is normal in size. IVC is normal in size and collapses >50% with inspiration. Pericardium There is no pericardial effusion. Other Information Study Quality: Technically Difficult Conclusion Technically difficult study due to poor acoustic windows. Normal biventricular systolic function. No significant valvular stenosis or regurgitation. Electronically signed by : Pau Alfonso MD 06/15/2023 12:42:28
--- NOTE | 2023-06-12 14:03 | CA_ITS ---
APPROVED REPORT Exam: Pharmacologic Technologist: Hazel Gill, Ht: 5 ft 9 in Wt: 363 lbs BSA: 2.66 m2 HR: 75 bpm BP: 109/61 mmHg Rhythm: NSR Medical History Medications: Aspirin,,,,, Simvastatin,,,,, Gabapentin,,,,, Lasix,,,,, Tylenol,,,,, LoraTADINE,,,,, Aldactone,,,,, BenaDRYL,,,,, Cyclobenzaprine,,,,, Stress Test Details Test: LEXISCAN Reason for pharmacologic stress test: physical limitation. HR Resting HR: 80 bpm Max Heart Rate (APMHR): 165 bpm Max HR Achieved: 126 bpm Target HR (85% APMHR): 140 bpm % of APMHR: 76 Recovery HR: 87 bpm BP Resting BP: 109.0/61.0 mmHg Max BP: 128.0/71.0 mmHg Recovery BP: 120.0/67.0 mmHg ECG Resting ECG: NSR Stress ECG: No significant ST changes Arrhythmia: PVCs Clinical Exercise duration: 04:00 min Highest Stage Achieved: Stress ECG Conclusion Symptoms: SOA, chest pressure, mild head discomfort. Arrhythmias/Ectopy: Occasional PVC. ST-T Changes: No significant ST changes. Conclusion: Unremarkable Lexiscan stress. Myoview images reported separately. Test Summary REST . . . . . . . Resting REST 04:13 . . 80 . 109/ 61 . . Stage 1 01:00 . . 104 . . . . Stage 2 01:00 . . 99 . 128/ 71 . . Stage 3 01:00 . . 92 . . . . Stage 4 01:00 . . 88 . 108/ 61 . Stop exercise at 04:00 RECOVERY 01:00 . . 86 . . . . RECOVERY 02:00 . . 87 . 124/ 67 . . RECOVERY 03:00 . . 83 . 124/ 67 . . RECOVERY 03:20 . . 88 . 120/ 67 . . Electronically signed by : Pau Alfonso MD 06/14/2023 19:52:07
== END 2023-06-12 23:59 ==
LOC: RAD 12:30
PROVIDERS: PCP Family Medicine; Visit Provider Nurse Practitioner
DX: R06.00 Dyspnea, unspecified (principal); I20.89 Other forms of angina pectoris; R94.31 Abnormal electrocardiogram [ECG] [EKG]; I10 Essential (primary) hypertension; I51.89 Other ill-defined heart diseases; J44.9 Chronic obstructive pulmonary disease, unspecified
CPT/HCPCS: 78452; 93017; 93018; 93306; A9502; J2785

== ENCOUNTER 2023-10-12 09:17 | Outpatient (CLI) | payer BC, SELFPAY ==
--- NOTE | 2023-10-12 09:18 | CT_ITS ---
FINAL REPORT CLINICAL HISTORY: lung cancer screening smoker; 1/2 pack a day x 38 yrs copd FINDINGS: CTDI vol (mGy): 2.90 DLP: 102.[address] images of the chest were obtained using the low-dose protocol for screening. There are calcified right paratracheal and right hilar lymph nodes. There is no evidence of mediastinal or hilar mass or adenopathy. No axillary mass or adenopathy is identified. On the lung window images, no pulmonary mass or suspicious nodule is identified. A calcified granuloma is seen in the right upper lobe anteriorly. There is right base scarring. Limited imaging of the upper abdomen demonstrates diffuse fatty infiltration of the liver. IMPRESSION: Lung RADS category 1 . Recommend 12 month followup low-dose CT for further evaluation. Reviewed, Interpreted and Dictated by Dong Torrez MD Transcribed by Zee Wheeler Authenticated and [facility]
== END 2023-10-12 23:59 | disposition home or self-care (01) ==
LOC: RAD 09:18
PROVIDERS: PCP Family Medicine; Visit Provider Internal Medicine Pulmonary Disease
DX: F17.210 Nicotine dependence, cigarettes, uncomplicated (principal)
CPT/HCPCS: 71271

== ENCOUNTER 2024-04-14 12:39 | Outpatient (CLI) | payer BC, SELFPAY ==
[2024-04-14 13:40] VITALS: PULSE 91; PULSE 92
[2024-04-14] MEDS: ALBUTEROL 0.083% 2.5 MG/3 ML NEB IH (13:40)
== END 2024-04-14 23:59 | disposition home or self-care (01) ==
LOC: RT 12:39
PROVIDERS: PCP Family Medicine; Visit Provider Internal Medicine Pulmonary Disease
DX: R06.09 Other forms of dyspnea (principal)
CPT/HCPCS: 94060; 94618; 94640; 94726; 94729; J7613

== ENCOUNTER 2024-07-18 08:11 | Outpatient (CLI) | payer BC, SELFPAY ==
[2024-07-18 08:38] LABS: Basophils # 0.1 K/mm3 (0-0.2); Basophils % 0.6 % (0.1-2.0); Eosinophils # 0.4 K/mm3 (0.0-0.4); Eosinophils % 2.8 % (0.1-12.0); Hematocrit 48.2 % (37.0-47.0); Hemoglobin 15.1 g/dL (12.2-16.2); Lymphocytes # 2.5 K/mm3 (0.7-4.5); Lymphocytes % 20.1 % (10-50); Mean Corpuscular HGB Conc 31.3 g/dL (31.8-35.4); Mean Corpuscular Hemoglobin 26.4 pg (27.0-31.2); Mean Corpuscular Volume 84.3 fl (81-99); Mean Platelet Volume 10.3 fl (7.4-10.4); Monocytes # 0.5 K/mm3 (0.1-1.0); Monocytes % 3.9 % (1.7-9.3); Neutrophils # 9.1 K/mm3 (1.8-7.8); Platelet Count 402 K/mm3 (142-424); Red Blood Count 5.72 M/mm3 (4.20-5.40); Red Cell Distribution Width 16.8 % (11.5-17.5); White Blood Count 12.6 K/mm3 (4.8-10.8)
[2024-07-18 09:05] LABS: Albumin Level 4.3 g/dl (3.5-5.0); Chloride 98 mmol/L (98-107); Potassium 4.1 mmoL/L (3.5-5.1); Sodium 136 mmol/L (136-145)
[2024-07-18 09:07] LABS: Bilirubin,Unconjugated 0.2 mg/dL (0.0-1.1); Blood Urea Nitrogen 19 mg/dl (7-17); Estimated Glomerular Filt Rate 46 ml/min (>60); GFR (African American) 56 ML/MIN (>60)
[2024-07-18 09:08] LABS: Alanine Aminotransferase 28 U/L (12-78); Alkaline Phosphatase 156 U/L (38-126); Anion Gap 12.1 mEq/L (5-15); Aspartate Amino Transferase 27 U/L (14-36); Bilirubin,Direct 0.2 mg/dl (0.0-0.4); Bilirubin,Indirect 0.2 mg/dL (0.0-0.9); Bilirubin,Total 0.4 mg/dl (0.2-1.3); Calcium 9.6 mg/dl (8.4-10.2); Carbon Dioxide 30 mmol/L (22.0-30.0); Chol/HDL Ratio 6.3 (1-3.5); Cholesterol 233 mg/dl (140-200); Glucose 248 mg/dl (74-100); HDL Cholesterol 37 mg/dl (40-60); Total Protein,Serum 7.3 g/dl (6.3-8.2); Triglycerides 282 mg/dl (30-150); VLDL Cholesterol 56 mg/dL (0-40)
[2024-07-18 09:20] LABS: Direct LDL Cholesterol 136.12 mg/dL (100-129)
[2024-07-18 09:24] LABS: Free T4 (Free Thyroxine) 0.98 ng/dl (0.78-2.19)
[2024-07-18 09:39] LABS: Thyroid Stimulating Hormone 3.09 uIU/mL (0.465-4.68)
[2024-07-22 13:13] LABS: D001-IgE D pteronyssinus <0.10 kU/L (Class 0); D002-IgE D farinae <0.10 kU/L (Class 0); E001-IgE Cat Dander <0.10 kU/L (Class 0); E005-IgE Dog Dander <0.10 kU/L (Class 0); E072-IgE Mouse Urine <0.10 kU/L (Class 0); G002-IgE Bermuda Grass <0.10 kU/L (Class 0); G006-IgE Timothy Grass <0.10 kU/L (Class 0); I006-IgE Cockroach, German <0.10 kU/L (Class 0); Immunoglobulin E, Total 7 IU/mL (6-495); M001-IgE Penicillium chrysogen <0.10 kU/L (Class 0); M002-IgE Cladosporium herbarum <0.10 kU/L (Class 0); M003-IgE Aspergillus fumigatus <0.10 kU/L (Class 0); M006-IgE Alternaria alternata <0.10 kU/L (Class 0); T001-IgE Maple/Box Elder <0.10 kU/L (Class 0); T003-IgE Common Silver Birch <0.10 kU/L (Class 0); T006-IgE Cedar, Mountain <0.10 kU/L (Class 0); T007-IgE Oak, White <0.10 kU/L (Class 0); T008-IgE Elm, American <0.10 kU/L (Class 0); T010-IgE Walnut <0.10 kU/L (Class 0); T011-IgE Maple Leaf Sycamore <0.10 kU/L (Class 0); T014-IgE Cottonwood <0.10 kU/L (Class 0); T015-IgE Ash, White <0.10 kU/L (Class 0); T022-IgE Pecan, Hickory <0.10 kU/L (Class 0); T070-IgE White Mulberry <0.10 kU/L (Class 0); W001-IgE Ragweed, Short <0.10 kU/L (Class 0); W011-IgE Thistle, Russian <0.10 kU/L (Class 0); W014-IgE Pigweed, Common <0.10 kU/L (Class 0); W018-IgE Sheep Sorrel <0.10 kU/L (Class 0)
== END 2024-07-18 23:59 | disposition home or self-care (01) ==
LOC: LAB 08:13
PROVIDERS: Physician Assistant; PCP Family Medicine; Visit Provider Internal Medicine Pulmonary Disease
DX: I25.118 Atherosclerotic heart disease of native coronary artery with other forms of angina pectoris (principal); I10 Essential (primary) hypertension; E78.5 Hyperlipidemia, unspecified; R60.0 Localized edema; R06.09 Other forms of dyspnea; J30.9 Allergic rhinitis, unspecified; F17.210 Nicotine dependence, cigarettes, uncomplicated
CPT/HCPCS: 36415; 80048; 80061; 80076; 82785; 84439; 84443; 85025; 86003

== ENCOUNTER 2024-08-05 09:01 | Outpatient (CLI) | payer BC, SELFPAY ==
--- NOTE | 2024-08-05 09:10 | XR_ITS ---
FINAL REPORT TECHNIQUE: Bone densitometry calculations of the lumbar spine and left hip were obtained. CLINICAL HISTORY: SCREENING FINDINGS: Using left one third radius, the bone mineral density of the radius is 0.635 g/cm2, corresponding to T-score of -1.0. Using the right one third radius, the bone mineral density of the radius left is 0.73 g/cm2, corresponding to a T-score of 0.1. NOTE: T-score: Standard deviation compared with peak bone mass of young adult mean. *Following the recommendations of the International Society of Bone densitometry, classification of hip BMD is based on the lower of two T-scores; total hip or femoral neck. IMPRESSION: Normal bone mineral density of the lumbar spine and hip. Reviewed, Interpreted and Dictated by Dong Torrez MD Transcribed by Jessica Calle Authenticated and [facility]
--- NOTE | 2024-08-05 09:10 | XR_ITS ---
FINAL REPORT CLINICAL HISTORY: KNEE PAIN COMPARISON: None FINDINGS: LEFT KNEE 3 views of the left knee were obtained. There is no acute fracture or dislocation. There is mild narrowing of the medial compartment joint space. Small osteophytes are noted of the lateral joint margin. Soft tissues are unremarkable. IMPRESSION: Mild degenerative changes without acute bony abnormality. Reviewed, Interpreted and Dictated by Dong Torrez MD Transcribed by Dona Carpenter Authenticated and [facility]
== END 2024-08-05 23:59 | disposition home or self-care (01) ==
LOC: RAD 09:03
PROVIDERS: PCP Family Medicine; Visit Provider Nurse Practitioner
DX: R74.8 Abnormal levels of other serum enzymes (principal); Z91.89 Other specified personal risk factors, not elsewhere classified; M85.89 Other specified disorders of bone density and structure, multiple sites; M25.562 Pain in left knee
CPT/HCPCS: 73562; 77080

== ENCOUNTER 2024-10-19 09:18 | Outpatient (CLI) | payer BC, SELFPAY ==
--- NOTE | 2024-10-19 09:20 | CT_ITS ---
FINAL REPORT TECHNIQUE: Thin section axial images were obtained from the lung apices to the upper abdomen by computed tomography. Reformatted images were obtained and reviewed. This study was performed with techniques to keep radiation doses al low as reasonably achievable (ALARA). Individualized dose reduction techniques using automated exposure control or adjustment of mA and/or kV according to the patient's size were employed. CLINICAL HISTORY: lung cancer screening CURRENT SMOKER 1/2PPD X40 YEARS COMPARISON: 10/12/2023 FINDINGS: CHEST CT LOW DOSE 58-year-old female, current smoker, 45-vler-ijey history. CTDI vol (mGy): 2.90 DLP (mGy-cm): 96.38 There is no axillary adenopathy. There is no mediastinal or hilar mass or adenopathy. The heart is normal in size. There is no pericardial or pleural effusion. There is mild emphysema and mild pulmonary scarring. Lung window images demonstrate a 4 mm nodule, pleural-based, in the anterior right upper lobe, best seen on image #31 of series 604, stable. There is also a 4 mm posterior right upper lobe nodule seen on image #16 of series 3, also stable. Limited images of the upper abdomen are unremarkable. IMPRESSION: Lung-RADS category 2. Recommend 12 month follow up low dose chest CT. Reviewed, Interpreted and Dictated by Dong Torrez MD Transcribed by Bernadine Mcdaniel Authenticated and . [facility]
== END 2024-10-19 23:59 | disposition home or self-care (01) ==
LOC: RAD 09:19
PROVIDERS: PCP Family Medicine; Visit Provider Internal Medicine Pulmonary Disease
DX: R91.8 Other nonspecific abnormal finding of lung field (principal); Z12.2 Encounter for screening for malignant neoplasm of respiratory organs; F17.210 Nicotine dependence, cigarettes, uncomplicated
CPT/HCPCS: 71271

== ENCOUNTER 2024-10-31 15:55 | Outpatient (CLI) | payer BC, SELFPAY ==
--- OUTSIDE RECORDS SUMMARY | 2024-10-31 16:00 | XMS_ITS | Data Portability ---
Author Organization [facility] [place] Address [address] [place] [id number] Assessment Encounter Date Assessment Date Assessment LastModified by Organization Details LastModified Time 03/24/2023 03/24/2023 Ms. Chu was referred by her PCP for management of chronic low back pain. Patient denies any DM or history of infection. Patient takes Aspirin daily for cardiac health. The patient has been to [facility] in 4546-4134 where she was receiving LEIs that provided significant pain relief of greater than 80% for over 3 months each time, but her pain has since then returned. The patient complains of low back pain with radiation into the left hip down the LLE with numbness/tingling affecting her daily function. She states that she can't stand for long periods of time without having to sit to alleviate pain. Based on the patient's history and physical exam, it appears the patient's pain is likely associated with lumbar DDD/stenosis and sacroiliitis. To address the patient's pain: I discussed possible treatment modalities such as a repeat LEI and left SI joint injection, but prior to considering a SI joint injection, I would like her to have imaging performed as she was not checked out after her fall and has had persistent, worsening pain since then. I will order a pelvic x-ray to assess for possible fracture along with the degree of arthritic/degener ative changes. I will also order a left SI joint x-ray to assess the degree of arthritic/degener ative changes. In the meantime, to address her low back/LLE pain, I will proceed with scheduling a LEI at L5-S1. I reviewed patient's previous lumbar MRI showing L5 pars defect with mild L5-S1 spondylolisthesis , L3-4 minimal disc bulging with moderate facet and degeneration with bilateral lateral recess narrowing, L4-5 degenerative disc disease with bulging disc. Once I have assessed the pelvic x-ray and ruled out fracture, I will then proceed with scheduling a left diagnostic SI joint injection. I will discuss further at follow up. - Schedule a LEI at L5-S1 - Order x-rays of left SI and pelvis today - Reviewed lumbar MRI today - Discuss left diagnostic SI joint injection following pelvic x-ray review - Follow up 2 weeks post LEI to assess efficacy --------- I have discussed in great detail our potential treatment options which would include a rehabilitative approach to care. This program would include medication management, Physical Therapy, consideration for interventional procedures as appropriate, and lifestyle modification (diet, weight loss, exercise, smoking/tobacco cessation, holistic approach including meditation and yoga). The patient understands and agrees prior to proceeding with this plan. _ __ __ __ __ __ __ __ __ __ __ __ __ __ __ __ __ __ __ __ __ __ __ __ __ __ __ __ _ RECORDS REVIEW: As per clinic policy, we will have the patient sign a release to obtain previous imaging and clinical notes. ----- PROCEDURE: I counseled the patient extensively and informed of the risks of the procedure, including the risk of paralysis, nerve damage, respiratory arrest, arrhythmias, stroke, weakness, and infection, which although very low, could result in or disability. The patient acknowledged to me that they understand and accept these risks. RN EDUCATION Extensive coordination of care provided by RN to educate patient on upcoming procedure and to coordinate obtaining extensive incoming medical records. _ __ __ __ __ __ __ __ __ __ __ __ __ __ __ __ __ __ __ __ __ __ __ __ __ __ __ __ _ PSYCH: Pain affecting Neuro-psych behavior was discussed. Discussed about pain psychological counseling as a part of the multimodal approach to pain treatment. _ __ __ __ __ __ __ __ __ __ __ __ __ __ __ __ __ __ __ __ __ __ __ __ __ __ __ __ _ REHABILITATION: Discussed with the patient the importance of diet, daily physical activity and PT. Discussed with the patient the need to be scheduled for physical therapy since physical therapy will prolong the benefits of the procedure and interventions. _ __ __ __ __ __ __ __ __ __ __ __ __ __ __ __ __ __ __ __ __ __ __ __ __ __ __ __ _ ALEK: [id number] I have reviewed patient's ALEK report prior to prescribing Schedule II, III, and IV medications that require review by law. [email or web address] Not available 03/24/2023 11:52:36 Plan of Treatment Reminders Order Date Submit Date Provider Last Modified By Organization Details Last Modified Time Details Appointments None recorded. Lab None recorded. Referral None recorded. Procedures injection, single, diagnostic or therapeutic substance, lumbar, sacral (PROC) - 69206, LEI L5-S1 2022 023 [email or web address] Gretchen Doss MD, [address], [address], [place], [address], 10:02:48 Surgeries None recorded. Imaging XR, pelvis 2022 023 [email or web address] [facility] (Registration ), [address], [place], [address], 15:45:00 XR, sacroiliac joint(s) 2022 023 [email or web address] [facility] (Registration ), [address], [place], [address], 3 15:45:00 Medication Orders None recorded. Patient TargetsNo targets recorded. Patient InstructionsNo instructions recorded. Reason for Referral None Reported. Results Created Date Observation Date Name Description Value Unit Range Abnormal Flag Note LastModifiedBy Organization Detail LastModifiedTime 03/24/2003/24/2023 sacro iliac joint s min views [facility] [address] [place] [address] Phone: Fax: Name: KURT CHU Exam Date: 2022 : 968 Age 57 Gender : F Access ion: [id number] Physic suzanne: GRETCHEN MAY Facili ty: [facility] Facili ty HSV: Outpat ient Exam: SACROI LIAC JOINTS MIN VIEWS Sacroi liac joints Clinic al histor y: Pelvic pain. Findin gs: 3 images were obtain ed. There is no fractu re or disloc ation. There is modera te sacroi liac joint degene rative change with some sclero sis. The SI joints remain patent .. Impres ramy: SI joint degene rative change and sclero sis withou t acute bony abnorm ality. Films review ed , interp reted and dictat ed by Dr. Beth. Transc ribed by Elkin Ramirez PA-C. Dictat ed By: ISELA BETH Transc ribed By: Isela Beth Transc ribed On: 2022 10:50 AM Electr onical ly signed by: ISELA BETH 2022 Thank you for referr francis KURT CHU to [facility]. Legall y authen ticate d by POPE ISELA Cabello 2022-05 10:50: 37 CC'ed Logic: Orderi ng Provid er: BRITTNEY HAMILTONOD Attend ing Provid er: BRITTNEY HAMILTONOD Referr ing Provid er: BRITNTEY GODINEZ Admitt ing Provid er: BRITTNEY GODINEZ [email or web address] [facility] [address] [facility], [place], [address], 03/24/2023 15:38:04 03/24/20 23 03/24/2023 XR, pelvi s, 1 or 2 view [facility] [address] [place] [address] Phone: Fax: Name: KURT CHU Exam Date: 2022 : 968 Age 57 Gender : F Access ion: [id number] Physic suzanne: ALFONSO MAYOD Facili ty: [facility] Facili ty HSV: Outpat ient Exam: PELVIS 1-2 VIEWS PELVIS CLINIC AL HISTOR Y: Trauma . Pain. FINDIN GS: A single AP view of the pelvis was obtain ed. No fractu res or disloc ations are identi fied. There is mild bilate ral hip joint space narrow ing. There is sacroi liac joint degene rative change with some sclero sis. The SI joints remain patent . IMPRES RAMY: Degene rative change s withou t acute bony abnorm ality. Films review ed , interp reted and dictat ed by Dr. Beth. Transc ribed by Elkin Ramirez PA-C. Dictat ed By: ISELA BETH Transc ribed By: Isela Beth Transc ribed On: 2022 10:51 AM Electr onical ly signed by: ISELA BETH 2022 Thank you for referr KURT Gaona to [facility]. Legall y authen ticate d by POPE ISELA Cabello 2022-05 10:51: 11 CC'ed Logic: Orderi ng Provid er: BRITTNEY GODINEZ Attend ing Provid er: BRITTNEY GODINEZ Referr ing Provid er: BRITTNEY GODINEZ Admitt ing Provid er: BRITTNEY [email or web address] [facility] [address], [place], [address], 03/24/2023 15:38:04 Result Notes None recorded. Problems Name Problem SNOMED Code Status Onset Date Resolution Date Notes Provider Name and Address Organization Details Recorded Time Inflammatio n of sacroiliac joint 81849282 Active 2022 Isaura Muniz null, [place] - [facility] [place] 3 09:09:04 Degeneratio n of lumbar interverteb ral disc 57774982 Active 2022 Isaura Muniz null, [place] - [facility] & [place] 3 09:09:57 Spinal stenosis of lumbar region 80846079 Active 2022 Isaura Muniz null, [place] - [facility] [place] [facility] [place] 3 09:10:02 Radicular pain 17827519 Active 2022 Isaura Muniz null, [place] - [facility] [place] 3 09:10:08 Myofascial pain 881017502 Active 2022 Isaura Muniz null, [place] - [facility] [place] 3 09:10:15 Pain of left hip joint 4716783317335 00 Active 2022 Isaura Muniz null, [place] - [place] & [place] 3 09:10:29 Problem Notes None recorded. Medical Equipment None Reported. Allergies No known drug allergies Medications Name Sig Start Date Stop Date Status Note LastModified by Organization Details LastModified Time cyclobenzap rine 10 mg tablet TAKE 1 TABLET BY MOUTH ONCE DAILY AT BEDTIME NEEDED active Not Available Not Available No t Available furosemide 40 mg tablet TAKE 1 TABLET BY MOUTH ONCE DAILY active Not Available Not Available No t Available albuterol sulfate 2.5 mg/3 mL (0.083 %) solution for nebulizatio n USE 1 VIAL IN NEBULIZER EVERY 6 HOURS NEEDED active Not Available Not Available No t Available azithromyci n 250 mg tablet TAKE 2 TABLETS BY MOUTH ON DAY 1, AND THEN TAKE 1 TABLET BY MOUTH ONCE A DAY ON DAY 2 THROUGH DAY 5 03/24 completed Not Available Not Available Not Available aspirin 81 mg tablet,pedro yed release TAKE 1 TABLET BY MOUTH ONCE DAILY active Not Available Not Available No t Available simvastatin 20 mg tablet TAKE 1 TABLET BY MOUTH ONCE DAILY IN THE EVENING 03/24 completed Not Available Not Available Not Available lisinopril 10 mg tablet TAKE 1 TABLET BY MOUTH ONCE DAILY 03/24 completed Not Available Not Available Not Available furosemide 20 mg tablet TAKE 1 TABLET BY MOUTH TWICE DAILY 03/24 completed Not Available Not Available Not Available gabapentin 100 mg capsule TAKE 1 CAPSULE BY MOUTH ONCE DAILY AT BEDTIME FOR 30 DAYS active Not Available Not Available No t Available metoprolol succinate ER 25 mg tablet,exte nded release 24 hr TAKE 1 TABLET BY MOUTH ONCE DAILY active Not Available Not Available No t Available naproxen 500 mg tablet TAKE 1 TABLET BY MOUTH EVERY 12 HOURS NEEDED, TAKE WITH FOOD active Not Available Not Available No t Available spironolact one 50 mg tablet TAKE 1 TABLET BY MOUTH ONCE DAILY active Not Available Not Available No t Available potassium chloride ER 10 mEq tablet,exte nded release(par t/cryst) TAKE 1 TABLET BY MOUTH TWICE DAILY WITH FOOD active Not Available Not Available No t Available Trelegy Ellipta 100 mcg-62.5 mcg-25 mcg powder for inhalation INHALE 1 PUFF ONCE DAILY active Not Available Not Available No t Available Vitals Date Recorded Body height Body mass index (BMI) Body weight Body temperature Oxygen saturation Oxygen saturation in Arterial blood by Pulse oximetry Heart rate Systolic blood pressure Diastolic blood pressure Provider Name and Address Organization Details Last Updated DateTime 3 167.64 cm 57.9 kg/m2 654241. 66 g 97.9 [degF] 96 % 96 % 84 /min 126 mm[Hg] 81 mm[Hg] Delores Cantu [place] - [facility] - [place] 3 08:57:16 Social History None recorded. Functional Status None recorded. Mental Status None recorded. Family History Nothing Reported. Medical History Condition Response Acid Reflux (GERD) Y Heart Disease Y Hypertension Y High Cholesterol Y Gynecological HistoryNo gynecological history recorded. Obstetrics History GPAL:G 0 P 0 0 0 0 Past Encounters Encounter ID Performer Location Encounter Start Date Encounter Closed Date Diagnosis/Indication Diagnosis SNOMED-CT Code Diagnosis ICD10 Code Diagnosis Note [id number] Gretchen Doss MD [facility] [address] [facility] [address] [place] [address] 03/24/2023 07:55:41 03/24/2023 09:19:06 Inflammation of sacroiliac joint 88610718 M46.1 Spinal sabino nosis of lumbar region 88555382 M99.53 Degenerati on of lumbar intervertebral disc 16786671 M51.36 Radicular pain 67678636 M54.10 Myofascial pain 67862238 9 M79.10 Pain of le ft hip joint 4953032704 54381 M25.552 Health Concerns Section Related Observation LastModified by Organization Detai ls LastModified Time None Recorded Concern Status LastModified by Organization Details LastModified Time None Recorded Advance Directives Directive None Recorded Payers Insurance Date Sequence Insurance Name Policy Number Policy Snow Covered Member ID Snow Member ID Guarantor Name 03/22/2023 1 [place] [id number] 1 Chay Chu [id number] Kurt Chu Notes Date Note Type Note Provider Name and Address Organization Details Recorded Time 3 text/html Ms. Chu was referred by her PCP for management of chronic low back pain. Patient denies any DM or history of infection. Patient takes Aspirin daily for cardiac health. The patient has been to [facility] in [phone] where she was receiving LEIs that provided significant pain relief of greater than 80% for over 3 months each time, but her pain has since then returned. She mentions being a candidate for lumbar surgery, but they will not consider due to body habitus. The patient complains of low back pain with radiation into the left hip down the LLE with numbness/tingling affecting her daily function. She states that she can't stand for long periods of time without having to sit to alleviate pain. Also sitting too long exacerbates pain. She mentions falling this past week which has exacerbated pain, specifically in the left hip, affecting her gait and making walking even more difficult than prior to fall. She has participated in PT in the past and continues at home exercises/stretches and other conservative measures when tolerated with minimal benefit. The patient would like to discuss further injections for her low back pain for better pain control and to allow better daily function. Initial complaint: chronic low back painOnset: 5+ yearsContext: worsening over timeCharacter: sharp, aching, throbbing, radiating, numbness/tinglingLocatio n: low back, LLE, left hipDuration: constant with fluctuationsInitial Intensity: 3/10Worse: standing, sitting too long, walking, bending, changing positions, activityBetter: restAssociated symptoms: Denies saddle anaesthesia, denies acute bowel/bladder changes, denies acute power loss.ADLs: The patient's pain interferes with daily chores, exercise, sleep, relationships, and walking.Current Pain Medications: nonePrior Pain Medications: noneNSAIDS/OTC: mildly helpfulNon-interventiona l Tx: nonePhysical Therapy: several years agoInterventional Tx: Darline - CKIPMCSurgery: noneImaging/Studies: no recent imaging Gretchen Doss MD [address] [facility], [place], [address], [facility] - [place] 03/24/2023 14:13:49 OBGyn Episode No OBEpisode recorded.
--- OUTSIDE RECORDS SUMMARY | 2024-10-31 16:00 | XMS_ITS | Clinical Summary ---
Author Organization [facility] Address [address] [place] [address] Care Team Providers Care Institutional Research Director Name Role Phone Unavailable Primary Care Provider Unavailabl e Social History Tobacco Use Types Packs/Day Years Used Date Smoking Tobacco: Never Assessed Comments Unknown Sex and Gender Information Value Date Recorded Sex Assigned at Not on file Legal Sex Female 4:02 PM EDT Gender Identity Not on file Sexual Orientation Not on file Last Filed Vital Signs Vital Sign Reading Time Taken Comments Blood Pressure 118/62 10/23/2022 4:06 PM EDT Pulse 89 10/23/2022 4:06 PM EDT Temperature - - Respiratory Rate - - Oxygen Saturation - - Inhaled Oxygen Concentration - - Weight 164 kg (361 lb) 10/23/2022 4:06 PM EDT Height 175.3 cm (5' 9 ) 10/23/2022 4:06 PM EDT Body Mass Index 53.31 10/23/2022 4:06 PM EDT Plan of Treatment Health Maintenance Due Date Last Done Comments [facility]-Depression Screening 1965 [facility]-Infant/Child/Adol SDOH Screenings 1965 [facility]- SDOH Screenings 11/11/1985 [facility]-Adult SDOH Screenings 11/11/1985 [facility]-DTaP,Tdap,and Td Vaccine s (1 - Tdap) 11/11/1986 [facility]-Hepatitis B Vaccines (1 of 3 - 19+ 3-dose series) 11/11/1986 [facility]-Pap Smear 11/11/1988 [facility]-Cervical Cancer Screening 11/11/1997 [facility]-HPV/Cotest 11/11/1997 CT Colonography 11/11/2012 Colonoscopy 11/11/2012 FIT-DNA 11/11/2012 FIT 11/11/2012 FOBT 11/11/2012 Sigmoidoscopy 11/11/2012 [facility]-Colorectal Cancer Screening 11/11/2012 [facility]-Pneumococcal Vaccine: 50 + Years (1 of 1 - PCV) 11/11/2017 [id number] Vaccine (3 - 2023- season) 2024 03/30/2021, 08/25/2020 [facility]-Influenza Vaccine (Seaso n Ended) 2025 [facility]-Zoster Vaccines Completed 08/07/2022, 04/16/2022 HPV Vaccines Aged Out No longer eligi ble based on patient's age to complete this topic [facility]-HIB Vaccines Aged Out No longer e ligible based on patient's age to complete this topic [facility]-Hepatitis A Vaccines Aged Out No longer eligible based on patient's age to complete this topic [facility]-IPV Vaccines Aged Out No longer e ligible based on patient's age to complete this topic [facility]-Rotavirus Vaccines Aged Out No lo nger eligible based on patient's age to complete this topic Insurance
[2024-10-31 17:12] LABS: Basophils # 0.1 K/mm3 (0-0.2); Basophils % 0.4 % (0.1-2.0); Eosinophils # 0.3 Kmm3 (0.0-0.4); Eosinophils % 2.1 % (0.1-12.0); Hematocrit 48.1 % (37.0-47.0); Hemoglobin 14.5 g/dL (12.2-16.2); Immature Granulocytes # 0.07 10^3uL; Immature Granulocytes % 0.5 %; Lymphocytes # 2.9 K/mm3 (0.7-4.5); Lymphocytes % 22.1 % (10-50); Mean Corpuscular HGB Conc 30.1 g/dL (31.8-35.4); Mean Corpuscular Hemoglobin 26.1 pg (27.0-31.2); Mean Corpuscular Volume 86.5 fl (81-99); Mean Platelet Volume 11.1 fl (7.4-10.4); Monocytes # 0.6 K/mm3 (0.1-1.0); Monocytes % 4.7 % (1.7-9.3); Neutrophils # 9.2 K/mm3 (1.8-7.8); Neutrophils % 70.2 % (37.0-80.0); Nucleated Red Blood Cells # 0 10^3/uL; Nucleated Red Blood Cells % 0 %; Platelet Count 378 K/mm3 (142-424); Red Blood Count 5.56 M/mm3 (4.20-5.40); Red Cell Distribution Width 15.7 % (11.5-17.5); Red Cell Distribution Width-SD 49.3 fL; White Blood Count 13.1 K/mm3 (4.8-10.8)
[2024-10-31 17:45] LABS: Alanine Aminotransferase 19 U/L (12-78); Albumin Level 3.9 g/dl (3.5-5.0); Alkaline Phosphatase 138 U/L (38-126); Anion Gap 13.7 mEq/L (5-15); Aspartate Amino Transferase 24 U/L (14-36); Bilirubin,Direct 0.2 mg/dl (0.0-0.4); Bilirubin,Indirect 0.3 mg/dL (0.0-0.9); Bilirubin,Total 0.5 mg/dl (0.2-1.3); Bilirubin,Unconjugated 0.3 mg/dL (0.0-1.1); Blood Urea Nitrogen 17 mg/dl (7-17); Calcium 9.2 mg/dl (8.4-10.2); Carbon Dioxide 28 mmol/L (22.0-30.0); Chloride 101 mmol/L (98-107); Chol/HDL Ratio 4.1 (1-3.5); Cholesterol 159 mg/dl (140-200); Estimated Glomerular Filt Rate 46 ml/min (>60); GFR (African American) 56 ML/MIN (>60); Glucose 210 mg/dl (74-100); HDL Cholesterol 39 mg/dl (40-60); Potassium 4.7 mmoL/L (3.5-5.1); Sodium 138 mmol/L (136-145); Triglycerides 270 mg/dl (30-150); VLDL Cholesterol 54 mg/dL (0-40)
[2024-10-31 17:56] LABS: Direct LDL Cholesterol 75.28 mg/dL (100-129)
[2024-10-31 18:03] LABS: Free T4 (Free Thyroxine) 0.91 ng/dl (0.78-2.19)
[2024-10-31 18:15] LABS: Thyroid Stimulating Hormone 2.45 uIU/mL (0.465-4.68)
== END 2024-10-31 23:59 | disposition home or self-care (01) ==
LOC: LAB 15:55
PROVIDERS: PCP Family Medicine; Visit Provider Nurse Practitioner
DX: I11.9 Hypertensive heart disease without heart failure (principal); I25.118 Atherosclerotic heart disease of native coronary artery with other forms of angina pectoris
CPT/HCPCS: 36415; 80048; 80061; 80076; 83735; 84439; 84443; 85025; 93270

== ENCOUNTER 2024-11-10 14:56 | Outpatient (CLI) | payer BC, SELFPAY ==
--- OUTSIDE RECORDS SUMMARY | 2024-11-10 14:58 | XMS_ITS | Data Portability ---
Author Organization [facility] [place] [facility] [place] Address [address] [place] [address] Assessment Encounter Date Assessment Date Assessment LastModified by Organization Details LastModified Time 03/24/2023 03/24/2023 Ms. Chu was referred by her PCP for management of chronic low back pain. Patient denies any DM or history of infection. Patient takes Aspirin daily for cardiac health. The patient has been to [facility] in [phone] where she was receiving LEIs that provided [...] __ __ __ __ __ _ ALEK: [id number] I have reviewed patient's ALEK report prior to prescribing Schedule II, III, and IV medications that require review by law. Not available 03/24/2023 11:52:36 Plan of Treatment Reminders Order Date Submit Date Provider Last Modified By Organization Details Last Modified Time Details Appointments None recorded. Lab None recorded. Referral None recorded. Procedures injection, single, diagnostic or therapeutic substance, lumbar, sacral (PROC) - 92798, LEI L5-S1 2022 023 [email or web address] Gretchen Doss MD, [address], [address], [place], [address], 10:02:48 Surgeries None recorded. Imaging XR, pelvis 2022 023 [facility] (Registration ), [address], [place], [address], 15:45:00 XR, sacroiliac joint(s) 2022 023 [id number] [facility] (Registration ), [address], [place], [address], 3 15:45:00 Medication Orders None recorded. Patient TargetsNo targets recorded. Patient InstructionsNo instructions recorded. Reason for Referral None Reported. Results Created Date Observation Date Name Description Value Unit Range Abnormal Flag Note LastModifiedBy Organization Detail LastModifiedTime 03/24/2003/24/2023 sacro iliac joint s min views [facility] [address] [place] [address] Phone: Fax: Name: KURT CHU Exam Date: 2022 : [birth year] Age 57 Gender : F Access ion: [id number] Physic suzanne: GRETCHEN MAY Facili ty: [facility] Facili ty HSV: Outpat ient Exam: SACROI [...] er: BRITTNEY HAMILTONOD Referr ing Provid er: BRITTNEY GODINEZ Admitt ing Provid er: BRITTNEY GODINEZ [email or web address] [facility] - Physical Therapy [address] [facility], [place], [address], 03/24/2023 15:38:04 03/24/20 23 03/24/2023 XR, pelvi s, 1 or 2 view [facility] [address] [facility] [place] [address] Phone: Fax: Name: KURT CHU Exam Date: 2022 : [birth year] Age 57 Gender : F Access ion: [id number] 4504 Physic suzanne: ALFONSO MAYOD Facili ty: [facility] Facili ty HSV: Outpat ient Exam: PELVIS [...] Thank you for referr KURT Gaona to [facility] ity Hospit al. Legall y authen ticate d by POPE ISELA Cabello 2022-05 10:51: 11 CC'ed Logic: Orderi ng Provid er: BRITTNEY GODINEZ Attend ing Provid er: BRITTNEY GODINEZ Referr ing Provid er: BRITTNEY GODINEZ Admitt ing Provid er: BRITTNEY GODINEZ remigio [facility] - Physical Therapy [address] [facility], [place], [address], 03/24/2023 15:38:04 Result Notes Documentation Provider Name and Address Organization Details Recorded Time Xr, Pelvis, 1 Or 2 View : [facility] [address] [place] [address] Name: KURT CHU Exam Date: 03/24/2023 : 1965 Age 57 Gender: F Physician: GRETCHEN DOSS Facility: [facility] Facility HSV: Outpatient Exam: PELVIS 1-2 VIEWS PELVIS CLINICAL HISTORY: Trauma. Pain. FINDINGS: A single AP view of the pelvis was obtained. No fractures or dislocations are identified. There is mild bilateral hip joint space narrowing. There is sacroiliac joint degenerative change with some sclerosis. The SI joints remain patent. IMPRESSION: Degenerative changes without acute bony abnormality. Films reviewed , interpreted and dictated by Dr. Beth. Transcribed by Elkin Ramirez PA-C. Dictated By: ISELA BETH Transcribed By: Isela Beth Transcribed On: 03/24/2023 10:51 AM Electronically signed by: ISELA BETH 03/24/2023 Thank you for referring KURT CHU to [facility]. Legally authenticated by POPE ISELA Cabello 2023-03-24 10:51:11 CC'ed Logic: Ordering Provider: BRIANA GODINEZ Attending Provider: BRIANA GODINEZ Referring Provider: BRIANA GODINEZ Admitting Provider: JOSE REY [address] [facility], [place], [address], [facility] - [place] - [place] 03/24/2023 15:38:04 Problems Name Problem SNOMED Code Status Onset Date Resolution Date Notes Provider Name and Address Organization Details Recorded Time Inflammatio n of sacroiliac joint 76316903 Active 2022 Isaura Muniz null, [place] - [facility] & [place] 3 09:09:04 Degeneratio n of lumbar interverteb ral disc 93375419 Active 2022 Isaura Muniz null, [place] - [facility] - [facility] [place] 3 09:09:57 Spinal stenosis of lumbar region 24718134 Active 2022 Isaura Muniz null, [place] - [facility] [place] 3 09:10:02 Radicular pain 67223175 Active 2022 Isaura Muniz null, [place] - [facility] [place] 3 09:10:08 Myofascial pain 189957109 Active 2022 Isaura Muniz null, [place] - [place] [place] 3 09:10:15 Pain of left hip joint 8099121982781 00 Active 2022 Isaura Muniz null, [place] - [facility] & [place] 3 09:10:29 Problem Notes None recorded. Medical [...] Updated DateTime 3 167.64 cm 57.9 kg/m2 268436. 66 g 97.9 [degF] 96 % 96 % 84 /min 126 mm[Hg] 81 mm[Hg] Delores Pepe [place] - [place] [facility] & [place] 3 08:57:16 Social History None recorded. Functional [...] SNOMED-CT Code Diagnosis ICD10 Code Diagnosis Note [id number] Gretchen Doss MD [facility] [address] [facility] [place] [address] 03/24/2023 07:55:41 03/24/2023 09:19:06 Inflammation of sacroiliac joint 79769273 M46.1 Spinal sabino nosis of lumbar region 47811133 M99.53 Degenerati on of lumbar intervertebral disc 55364159 M51.36 Radicular pain 17552190 M54.10 Myofascial pain 40131494 9 M79.10 Pain of le ft hip joint 6389358207 02773 M25.552 Health Concerns Section Related Observation LastModified by Organization Detai ls LastModified Time None Recorded Concern Status LastModified by Organization Details LastModified Time None Recorded Advance Directives Directive None Recorded Payers Insurance Date Sequence Insurance Name Policy Number Policy Snow Covered Member ID Snow Member ID Guarantor Name 03/22/2023 1 [place] [id number] 1 Chay Chu [id number] Kurt Chu Notes Date Note Type Note Provider Name and Address Organization Details Recorded Time 3 text/html Ms. Chu was referred by her PCP for management of chronic low back pain. Patient denies any DM or history of infection. Patient takes Aspirin daily for cardiac health. The patient has been to [facility] in [phone] where she was receiving LEIs that provided [...] noneImaging/Studies: no recent imaging Gretchen Doss MD [address] [facility], [place], [address], [facility] - [place] 03/24/2023 14:13:49 OBGyn Episode No OBEpisode recorded.
--- OUTSIDE RECORDS SUMMARY | 2024-11-10 14:58 | XMS_ITS | Clinical Summary ---
Author Organization [facility] Address [address] [place] [address] Care Team Providers Care Renal Dietitian Name Role Phone Unavailable Primary Care Provider [...] Years (1 of 1 - PCV) 11/11/2017 [id number] Vaccine (3 - 2023- season) 2024 03/30/2021, [...]
--- NOTE | 2024-11-10 15:15 | CA_ITS ---
APPROVED REPORT EXAM: Comprehensive 2D, Doppler, and color-flow Echocardiogram Purchasing Contracting Clerk: Janie Myers, RT(R) Ht: 5 ft 9 in Wt: 371lbs BSA: 2.69 BP: 139/61 mmHg Indications: edema, smoker, shortness of air, AFIB, fatigue, COPD, hypertension. 2D Dimensions LVEF (Hooper's) 66.10 % F: 54 - 74 LV Volume 102.30 mL F: 46 - 106 LV Volume Index 38.0 mL/m2 F: 29 - 61 EF AP4 69.30 % EF AP2 62.1 % EF BP 66.1 % GL Strain -16.9 % M-Mode Dimensions RVDd 3.04 cm (0.9-2.6) LA Diam 4.14 cm (1.9-4.0) LVDd 5.15 cm (3.5-5.7) LVDs 4.27 cm (3.5-5.7) IVSd 0.83 cm (0.6-1.1) PWd 1.28 cm (0.6-1.1) EF (Teich) 35.50% FS 17.10% EDV (Teich) 126.60 mL ESV (Teich) 81.70 mL Left Ventricle The left ventricle is normal size. The left ventricular systolic function is normal. The left ventricular ejection fraction is within the normal range. There is normal left ventricular wall thickness. There is normal LV segmental wall motion. The left ventricular diastolic function is normal. LVEF is 55%. Right Ventricle The right ventricle is normal size. The right ventricular systolic function is normal. Atria The left atrium size is normal. The right atrium size is normal. There is no Doppler evidence of interatrial shunt. Aortic Valve The aortic valve opens well. There is no aortic valvular stenosis. No aortic regurgitation is present. Mitral Valve The mitral valve is normal in structure. No evidence of mitral valve stenosis. There is no mitral valve regurgitation noted. Tricuspid Valve Tricuspid valve is grossly normal in structure and function. Trace tricuspid regurgitation. There is insufficient TR jet to estimate RVSP. Pulmonic Valve The pulmonary valve is normal in structure. Trace pulmonic regurgitation. Great Vessels The aortic root is normal in size. IVC is normal in size and collapses >50% with inspiration. Pericardium There is no pericardial effusion. Other Information Study Quality: Technically Difficult Conclusion Technically difficult study due to poor acoustic windows. Normal biventricular systolic function. No significant valvular stenosis or regurgitation. Electronically signed by : Pau Alfonso MD 11/14/2024 22:52:35
== END 2024-11-10 23:59 | disposition home or self-care (01) ==
LOC: RT 14:56
PROVIDERS: PCP Family Medicine; Visit Provider Nurse Practitioner
DX: E78.49 Other hyperlipidemia (principal); I11.9 Hypertensive heart disease without heart failure; I48.91 Unspecified atrial fibrillation; I25.118 Atherosclerotic heart disease of native coronary artery with other forms of angina pectoris; R94.39 Abnormal result of other cardiovascular function study; R93.1 Abnormal findings on diagnostic imaging of heart and coronary circulation; F17.200 Nicotine dependence, unspecified, uncomplicated; J44.9 Chronic obstructive pulmonary disease, unspecified
CPT/HCPCS: 93306

== ENCOUNTER 2024-11-17 07:22 | Day surgery (SDC) | payer BC, SELFPAY ==
[2024-11-17] VITALS (12 sets, daily range): BP systolic 109–157; BP diastolic 62–94; PULSE 76–106; RESP 16–20; TEMP 36.2; O2SAT 92–95; BMI 54.8; BMI 52.8
--- NOTE | 2024-11-17 07:07 | IR_ITS ---
APPROVED REPORT Patient Location: Outpatient PROCEDURES Left heart catheterization Left ventriculogram Selective coronary angiogram INDICATION Abnormal Myoview, Angina pectoris, Informed consent was obtained prior to the procedure. COMPLICATIONS none Estimated Blood Loss: less than 10ml TECHNIQUE One percent lidocaine used to anesthetize the right anterior aspect of the wrist. The right radial artery was accessed via the Seldinger technique. A 6 Persian sheath was placed in the right radial artery. 2.5 mg of Verapamil, 800 mcg of nitroglycerin, 1mg Lidocaine and 5000 U Heparin were given through the arterial sheath. The JL3 catheter was also used to perform left heart catheterization, left ventriculogram and selective coronary angiogram. At the end of the procedure the sheath was removed good hemostasis was achieved using Traclet band, patient was transferred to the postop holding area in stable condition. ANGIOGRAPHIC RESULTS The left main artery Normal The left anterior descending artery His proximal and mid vessel 10 to 20% luminal regularities was also involves a large diagonal artery The circumflex artery Large codominant mild luminal regularities The right coronary artery Codominant mild 10% luminal regularities The KHAN ventriculogram reveals Hyperdynamic 70% The left ventricular end-diastolic pressure Severely elevated at 30 mmHg IMPRESSION Mild diffuse luminal irregularities all of which are nonflow limiting Hyperdynamic ventricle with severely elevated LVEDP PLAN 1. Medical management with aggressive risk factor modification 2. Recommend sleep study 3. Aggressive control of diabetes 4. Treatment of HFpEF Electronically signed by : Brad Scott MD 11/17/2024 09:39:17
[2024-11-17 07:48] LABS: Basophils # 0.1 K/mm3 (0-0.2); Basophils % 0.5 % (0.1-2.0); Eosinophils # 0.3 Kmm3 (0.0-0.4); Eosinophils % 2.2 % (0.1-12.0); Hematocrit 46.3 % (37.0-47.0); Hemoglobin 14.8 g/dL (12.2-16.2); Immature Granulocytes # 0.06 10^3uL; Immature Granulocytes % 0.5 %; Lymphocytes # 2.5 K/mm3 (0.7-4.5); Lymphocytes % 19.7 % (10-50); Mean Corpuscular Volume 84.3 fl (81-99); Mean Platelet Volume 10.1 fl (7.4-10.4); Monocytes # 0.5 K/mm3 (0.1-1.0); Monocytes % 4.3 % (1.7-9.3); Neutrophils # 9.2 K/mm3 (1.8-7.8); Neutrophils % 72.8 % (37.0-80.0); Nucleated Red Blood Cells # 0 10^3/uL; Nucleated Red Blood Cells % 0 %; Platelet Count 351 K/mm3 (142-424); Red Blood Count 5.49 M/mm3 (4.20-5.40); Red Cell Distribution Width 15.8 % (11.5-17.5); Red Cell Distribution Width-SD 48.3 fL; White Blood Count 12.6 K/mm3 (4.8-10.8)
[2024-11-17 07:56] LABS: Chloride 97 mmol/L (98-107); Sodium 137 mmol/L (136-145)
[2024-11-17 07:59] LABS: Blood Urea Nitrogen 17 mg/dl (7-17); Creatinine Clearance Estimated 59 mL/min (50-200); Estimated Glomerular Filt Rate 51 ml/min (>60); GFR (African American) 62 ML/MIN (>60)
[2024-11-17 08:00] LABS: Calcium 9.6 mg/dl (8.4-10.2); Carbon Dioxide 30 mmol/L (22.0-30.0); Glucose 228 mg/dl (74-100)
[2024-11-17] MEDS: 0.9 % SODIUM CHLORIDE 500 ML 25 ML IV (09:22)
[2024-11-17] MEDS: LIDOCAINE 1% 10ML MDV 10 ML IJ (09:22)
[2024-11-17] MEDS: HEPARIN 1,000 UNITS/500ML NS (CATH LAB) 3000 UNIT IV (09:22)
[2024-11-17] MEDS: diphenhydrAMINE 50MG/ML VIAL 50 MG IV (09:23)
[2024-11-17] MEDS: VERAPAMIL 2.5MG/ML 2ML VIAL 2.5 MG IV (09:23)
[2024-11-17] MEDS: HEPARIN 1,000 UNITS/ML 10ML VIAL (CATH LAB) 5000 UNIT IV (09:23)
[2024-11-17] MEDS: NITROGLYCERIN 800MCG/8ML SYR (CATH LAB) 800 MCG IA (09:23)
[2024-11-17] MEDS: MIDAZOLAM HCL 1MG/ML 5ML VIAL 1 MG IV (09:35)
[2024-11-17] MEDS: FENTANYL 100MCG/2ML VIAL 50 MCG IV (09:37)
[2024-11-17] MEDS: IOPAMIDOL-370 (76%);100ML BOTTLE 60 ML IV (11:18)
== END 2024-11-17 12:05 | disposition home or self-care (01) ==
PROVIDERS: PCP Family Medicine; Visit Provider Internal Medicine
PROC: 4A023N7 Measurement of Cardiac Sampling and Pressure, Left Heart, Percutaneous Approach (ICD-10-PCS; CPT 93452; principal; 2024-11-17 07:30)
DX: R94.39 Abnormal result of other cardiovascular function study (principal); I20.9 Angina pectoris, unspecified; R93.1 Abnormal findings on diagnostic imaging of heart and coronary circulation; I11.0 Hypertensive heart disease with heart failure; I50.30 Unspecified diastolic (congestive) heart failure; I48.91 Unspecified atrial fibrillation; E78.49 Other hyperlipidemia; R60.0 Localized edema; J44.9 Chronic obstructive pulmonary disease, unspecified; F17.210 Nicotine dependence, cigarettes, uncomplicated; Z79.01 Long term (current) use of anticoagulants; Z79.899 Other long term (current) drug therapy; Z79.82 Long term (current) use of aspirin; Z82.49 Family history of ischemic heart disease and other diseases of the circulatory system
CPT/HCPCS: 93458; 80048; 85025; 99152; C1725; C1769; J1200; J1644; J2003; J3010; J7040; Q9967

== ENCOUNTER 2024-11-24 12:49 | Outpatient (CLI) | payer BC, SELFPAY ==
--- OUTSIDE RECORDS SUMMARY | 2024-11-24 12:57 | XMS_ITS | Clinical Summary ---
Author Organization [facility] Address [address] [place] [address] Care Team Providers Care 4 H Youth Development Specialist Name Role Phone Unavailable Primary Care Provider [...] Years (1 of 1 - PCV) 11/11/2017 [id number] Vaccine (3 - 2023- season) 2024 03/30/2021, [...]
[2024-11-24 13:56] LABS: Chloride 95 mmol/L (98-107); Potassium 4.3 mmoL/L (3.5-5.1); Sodium 135 mmol/L (136-145)
[2024-11-24 13:57] LABS: Alanine Aminotransferase 18 U/L (12-78); Albumin Level 4.1 g/dl (3.5-5.0); Alkaline Phosphatase 128 U/L (38-126); Aspartate Amino Transferase 21 U/L (14-36); Bilirubin,Direct 0.4 mg/dl (0.0-0.4); Bilirubin,Indirect 0.2 mg/dL (0.0-0.9); Bilirubin,Total 0.6 mg/dl (0.2-1.3); Bilirubin,Unconjugated 0.2 mg/dL (0.0-1.1); Cholesterol 148 mg/dl (140-200); HDL Cholesterol 36 mg/dl (40-60); Total Protein,Serum 7.1 g/dl (6.3-8.2); Triglycerides 288 mg/dl (30-150)
[2024-11-24 13:59] LABS: Anion Gap 17.3 mEq/L (5-15); Blood Urea Nitrogen 14 mg/dl (7-17); Calcium 9.4 mg/dl (8.4-10.2); Carbon Dioxide 27 mmol/L (22.0-30.0); Creatinine,Serum 1.10 mg/dl (0.52-1.04); Estimated Glomerular Filt Rate 51 ml/min (>60); GFR (African American) 62 ML/MIN (>60); Glucose 295 mg/dl (74-100)
== END 2024-11-24 23:59 | disposition home or self-care (01) ==
LOC: LAB 12:50
PROVIDERS: Nurse Practitioner; PCP Family Medicine; Visit Provider Physician Assistant
DX: E78.5 Hyperlipidemia, unspecified (principal); R93.1 Abnormal findings on diagnostic imaging of heart and coronary circulation; I25.118 Atherosclerotic heart disease of native coronary artery with other forms of angina pectoris; R06.09 Other forms of dyspnea; I11.9 Hypertensive heart disease without heart failure
CPT/HCPCS: 36415; 80048; 80061; 80076; 93270; 93272

== ENCOUNTER 2024-12-09 09:51 | Outpatient (CLI) | payer BC, SELFPAY ==
--- OUTSIDE RECORDS SUMMARY | 2024-12-09 09:57 | XMS_ITS | Data Portability ---
Author Organization [facility] [place] [facility] [place] Ybarra ADMIN Address [address] [place] [address] Assessment Encounter Date Assessment Date Assessment LastModified by Organization Details LastModified Time 03/24/2023 03/24/2023 Ms. Landaverde was referred by her PCP for management of chronic low back pain. Patient denies any DM or history of infection. Patient takes Aspirin daily for cardiac health. The patient has been to [facility] in [phone] where she was receiving LEIs that provided [...] __ __ __ __ __ _ ALEK: [id number] I have reviewed patient's ALEK report prior to prescribing Schedule II, III, and IV medications that require review by law. [email or web address] Not available 03/24/2023 11:52:36 Plan of Treatment Reminders Order Date Submit Date Provider Last Modified By Organization Details Last Modified Time Details Appointments None recorded. Lab None recorded. Referral None recorded. Procedures injection, single, diagnostic or therapeutic substance, lumbar, sacral (PROC) - 45350, LEI L5-S1 2022 023 [email or web address] Gretchen Doss MD, [address], [address], [place], [address], 10:02:48 Surgeries None recorded. Imaging XR, pelvis 2022 023 [email or web address] [facility] (Registration ), [address], [place], [address], 15:45:00 XR, sacroiliac joint(s) 2022 023 [email or web address] [facility] (Registration ), [address], [place], [address], 3 15:45:00 Medication Orders None recorded. Patient TargetsNo targets recorded. Patient InstructionsNo instructions recorded. Reason for Referral None Reported. Results Created Date Observation Date Name Description Value Unit Range Abnormal Flag Note LastModifiedBy Organization Detail LastModifiedTime 03/24/2003/24/2023 [facility] [address] [place] [address] Phone: Fax: Name: KURT LANDAVERDE Exam Date: 2022 : [birth year] Age 57 Gender : F Access ion: [id number] 4504 Physic suzanne: GRETCHEN MAY Facili ty: [facility] Facili ty HSV: Outpat ient Exam: [...] Thank you for referr [facility] Legall y authen ticate d by POPE ISELA Cabello 2022-05 10:50: 37 CC'ed Logic: Orderi ng Provid er: BRITTNEY BERNARD GRETCHEN Attend ing Provid er: BRITTNEY HAMILTONOD Referr ing Provid er: BRITTNEY HAMILTONOD Admitt ing Provid er: BRITTNEY HAMILTONOD [email or web address] [place] [address] - Physical Therapy [address] [facility], [place], [address], 03/24/2023 15:38:04 03/24/20 23 03/24/2023 XR, pelvi s, [facility] or [facility] [address] [place] [address] Phone: Fax: Name: KURT LANDAVERDE Exam Date: 2022 : [birth year] Age 57 Gender : F Access ion: [id number] 4504 Physic suzanne: GRETCHEN MAY [place] Fac[place] ty HSV: Outpat ient Exam: PELVIS [...] ISELA BETH 2022 Thank you for referr ing KURT LANDAVERDE to [facility] al. Legall y authen ticate d by POPE ISELA Cabello 2022-05 10:51: 11 CC'ed Logic: Orderi ng Provid er: BRITTNEY GODINEZ Attend ing Provid er: BRITTNEY GODINEZ Referr ing Provid er: BRITTNEY GODINEZ Admitt ing Provid er: BRITTNEY GODINEZ remigio [facility] - Physical Therapy [address] [facility], [place], [address], 03/24/2023 15:38:04 Result Notes Documentation Provider Name and Address Organization Details Recorded Time Xr, Pelvis, 1 Or 2 View : [facility] [address] [place] [address] Name: KURT LANDAVERDE Exam Date: 03/24/2023 : 1965 Age 57 Gender: F Physician: GRETCHEN DOSS Facility: [facility] Facility HSV: Outpatient Exam: PELVIS 1-2 [...] BETH 03/24/2023 Thank you for referring KURT LANDAVERDE to [facility]. Legally authenticated by POPE ISELA Cabello 2023-03-24 10:51:11 CC'ed Logic: Ordering Provider: BRIANA GODINEZ Attending Provider: BRIANA GODINEZ Referring Provider: BRIANA GODINEZ Admitting Provider: JOSE REY [address] [facility], [place], [address], [facility] & [place] 03/24/2023 15:38:04 Problems Name Problem SNOMED Code Status Onset Date Resolution Date Notes Provider Name and Address Organization Details Recorded Time Inflammatio n of sacroiliac joint 78990551 Active 2022 Isaura Muniz null, [place] - [facility] & [place] 3 09:09:04 Degeneratio n of lumbar interverteb ral disc 59238383 Active 2022 Isaura Muniz null, [place] - [place] - [place] & [place] 3 09:09:57 Spinal stenosis of lumbar region 07058436 Active 2022 Isaura Muniz null, [place] - [facility] & [place] 3 09:10:02 Radicular pain 25920105 Active 2022 Isaura Muniz null, [place] - [place] - [place] & [place] 3 09:10:08 Myofascial pain 092271317 Active 2022 Isaura Muniz null, [place] - [place] & [place] 3 09:10:15 Pain of left hip joint 0643230469830 00 Active 2022 Isaura Muniz null, [place] - [place] - [place] & [place] 3 09:10:29 Problem Notes None recorded. Medical [...] blood by Pulse oximetry Heart rate Systolic And Diastolic Provider Name and Address Organization Details Last Updated DateTime 3 167.64 cm 57.9 kg/m2 818066. 66 g 97.9 [degF] 96 % 96 % 84 /min 126/81 mm[Hg] Delores Pepe [place] - [place] [facility] & [place] 3 08:57:16 Social History None recorded. Functional Status None recorded. Mental Status None recorded. Family History Nothing Reported. Medical History Condition Response Acid Reflux (GERD) Y High Cholesterol Y Heart Disease Y Hypertension Y Gynecological HistoryNo gynecological history recorded. Obstetrics History GPAL:G 0 P 0 0 0 0 Past Encounters Encounter ID Performer Location Encounter Start Date Encounter Closed Date Diagnosis/Indication Diagnosis SNOMED-CT Code Diagnosis ICD10 Code Diagnosis Note [id number] Gretchen Doss MD [facility] [address] [facility] [place] [address] 03/24/2023 07:55:41 03/24/2023 09:19:06 Inflammation of sacroiliac joint 03840065 M46.1 Spinal sabino nosis of lumbar region 12291719 M99.53 Degenerati on of lumbar intervertebral disc 92622863 M51.36 Radicular pain 36463810 M54.10 Myofascial pain 37860206 9 M79.10 Pain of le ft hip joint 4828983565 16664 M25.552 Health Concerns Section Related Observation LastModified by Organization Detai ls LastModified Time None Recorded Concern Status LastModified by Organization Details LastModified Time None Recorded Advance Directives Directive None Recorded Payers Insurance Date Sequence Insurance Name Policy Number Policy Snow Covered Member ID Snow Member ID Guarantor Name 03/22/2023 1 [place] [id number] 1 Chay Landaverde [id number] Kurt Landaverde Notes Date Note Type Note Provider Name and Address Organization Details Recorded Time 3 text/html Ms. Landaverde was referred by her PCP for management of chronic low back pain. Patient denies any DM or history of infection. Patient takes Aspirin daily for cardiac health. The patient has been to [facility] in [phone] where she was receiving LEIs that provided [...] noneImaging/Studies: no recent imaging Gretchen Doss MD [address] [facility], [place], [address], [facility] - [place] & [place] 03/24/2023 14:13:49 OBGyn Episode No OBEpisode recorded.
--- OUTSIDE RECORDS SUMMARY | 2024-12-09 09:57 | XMS_ITS | Clinical Summary ---
Author Organization [facility] Address [address] [place] [address] Care Team Providers Care Customer Project Manager Name Role Phone Unavailable Primary Care Provider [...] Years (1 of 1 - PCV) 11/11/2017 [id number] Vaccine (3 - 2023- season) 2024 03/30/2021, 08/25/2020 [facility]-Influenza Vaccine (#1) 2025 [facility]-Zoster Vaccines Completed 08/07/2022, 04/16/2022 HPV [...]
[2024-12-09 10:30] VITALS: BMI 54.0
[2024-12-09 10:42] LABS: Hematocrit 47.2 % (37.0-47.0); Hemoglobin 14.7 g/dL (12.2-16.2); Immature Granulocytes % 0.4 %; Mean Corpuscular HGB Conc 31.1 g/dL (31.8-35.4); Mean Corpuscular Hemoglobin 26.3 pg (27.0-31.2); Mean Corpuscular Volume 84.6 fl (81-99); Nucleated Red Blood Cells % 0 %; Platelet Count 346 K/mm3 (142-424); Red Blood Count 5.58 M/mm3 (4.20-5.40); Red Cell Distribution Width-SD 49.1 fL; White Blood Count 14.1 K/mm3 (4.8-10.8)
[2024-12-09 10:56] LABS: INR 1.00 (0.9-1.1); Prothrombin Time 11.1 seconds (10.1-12.5)
[2024-12-09 10:59] LABS: Chloride 102 mmol/L (98-107); Potassium 4.3 mmoL/L (3.5-5.1); Sodium 147 mmol/L (136-145)
[2024-12-09 11:02] LABS: Anion Gap 23.3 mEq/L (5-15); Calcium 9.7 mg/dl (8.4-10.2); Carbon Dioxide 26 mmol/L (22.0-30.0); Glucose 203 mg/dl (74-100)
[2024-12-09 11:18] LABS: Blood Urea Nitrogen 18 mg/dl (7-17); Creatinine Clearance Estimated 54 mL/min (50-200); Creatinine,Serum 1.20 mg/dl (0.52-1.04); Estimated Glomerular Filt Rate 46 ml/min (>60); GFR (African American) 56 ML/MIN (>60)
== END 2024-12-09 23:59 | disposition home or self-care (01) ==
LOC: PREOP 09:52
PROVIDERS: PCP Family Medicine; Visit Provider Internal Medicine
DX: Z01.812 Encounter for preprocedural laboratory examination (principal)
CPT/HCPCS: 80048; 85025; 85610

== ENCOUNTER 2024-12-13 07:28 | Day surgery (SDC) | payer BC, SELFPAY ==
[2024-12-13 07:54] VITALS: BP 133/83; PULSE 91; RESP 22; TEMP 36.3; O2SAT 94; BMI 54.0
--- NOTE | 2024-12-13 07:55 | ECG_ITS ---
APPROVED REPORT Exam: Resting ECG HR:93 bpm ECG Measurements Heart Rate 93 AXES QRSd 84 QRS 26 QT 363 T 60 QTc 414 Conclusion ATRIAL FIBRILLATION LOW QRS VOLTAGE IN PRECORDIAL LEADS [QRS DEFLECTION < 1.0 mV IN CHEST LEADS] NONSPECIFIC ST & T-WAVE ABNORMALITY ABNORMAL RHYTHM ECG UNCONFIRMED REPORT Electronically signed by : Stan Shetty MD 12/14/2024 07:54:58
[2024-12-13] MEDS: LACTATED RINGERS 1000ML 1,000 ML 50 ML IV (08:02)
--- NOTE | 2024-12-13 08:40 | P.PNANES_ITS ---
[facility] Disclaimer: The information contained in this section may have been updated after the patient was seen, as this information can be updated by other users. Medical History (Updated 12/09/24 @ 10:41 by Vitaly Chicas RN) History of LEEP (loop electrosurgical excision procedure) of cervix complicating Other forms of dyspnea Atherosclerotic heart disease of [place] coronary artery with other forms of angina pectoris Other hyperlipidemia New onset atrial fibrillation Encounter for screening for malignant neoplasm of lung Smoking greater than 30 pack years Dyspnea on exertion History of staph infection Abnormal nuclear cardiac imaging test COPD (chronic obstructive pulmonary disease) Abnormal cardiovascular stress test Angina pectoris Family history of ischemic heart disease HTN (hypertension) HLD (hyperlipidemia) Chest pain Tobacco abuse Edema of both lower extremities Dyspnea Surgical History History of cardiac cath History of hysterectomy Family History Other Family history of acute congestive heart failure Family history of acute heart failure Family history of diabetes mellitus type I Family history of diabetes mellitus type II Family history of hyperlipidemia Family history of hypertension Family history of myocardial infarction Social History (Updated 12/09/24 @ 10:42 by Vitaly Chicas RN) Smoking Status: Current every day smoker tobacco type: cigarettes packs per day: 1 alcohol intake: never substance use type: denies use current occupational status: employed Travel in the last 8 weeks?: None household members: spouse housing: house current occupation: [employer] current occupational exposures/hazards: No caffeine: Yes [facility] Anesthesia Checklist Patient Identification Patient Identification: Verbal (Name & ) Structural Data Admitted From: Home Planned Operative Procedure/s: aamir NPO Status Verified Time NPO: 00:00 Additional verifications Anesthesia Reactions: No Airway Assessment Mallampati Score:: Class III C-Spine Mobility Assessed: Yes TMJ Mobility Assessed: Yes Dentition: Edentulous Neurological Assessment Level of Consciousness: Awake, Alert and Appropriate Anesthesia Plan Anesthesia Risk discussed: Yes Anesthesia Plan: Verified ASA Class: III Anesthesia Type: MAC
--- NOTE | 2024-12-13 09:00 | CA_ITS ---
APPROVED REPORT EXAM: Comprehensive 2D, Doppler, and color-flow Echocardiogram Surveillance Director: RT Joyce(R) Ht: 5 ft 9 in Wt: 366lbs BSA: 2.67 BP: 100/78 mmHg Indications: AFIB Procedure After obtaining informed consent, patient underwent transesophageal echo in the [facility]. Type of Sedation : MAC Sedation start time: 10:05 Case end Time: 10:15 The ROSLYN was performed without complications. Synchronized Cardioversion acheived with 150 Joules after 1 attempt(s). Rhythm following Synchronized Cardioversion: Normal Sinus Rhythm Throughout the procedure, the blood pressure, pulse oximetry, cardiac rhythm, and rate were monitored. The patient tolerated the procedure without adverse effects. Recovery from conscious sedation was uneventful and vital signs were stable. Left Ventricle The left ventricle is normal size. The left ventricular systolic function is normal. The left ventricular ejection fraction is within the normal range. There is increased LV wall thickness. There is normal LV segmental wall motion. LVEF is 55%. Right Ventricle The right ventricle is normal size. The right ventricular systolic function is normal. Atria Left atrium is dilated. Right atrium is dilated. Aortic Valve The aortic valve is normal in structure. The aortic valve is trileaflet. There is no aortic valvular stenosis. No aortic regurgitation is present. Mitral Valve The mitral valve is normal in structure. No evidence of mitral valve stenosis. Mild mitral regurgitation. Tricuspid Valve Tricuspid valve is grossly normal in structure and function. Trace tricuspid regurgitation. There is insufficient TR jet to estimate RVSP. Pulmonic Valve The pulmonary valve is normal in structure. Trace pulmonic regurgitation. Great Vessels The aortic root is normal in size. Pericardium There is no pericardial effusion. Other Information Study Quality: Fair Conclusion Normal biventricular systolic function. Biatrial dilation. Mild MR. No evidence of LA or ERICA thrombus. Once ROSLYN demonstrated no evidence of LA or ERICA thrombus, the patient underwent DCCV succussfully with 150J, after which her rhythm converted to NSR. Electronically signed by : Pau Alfonso MD 12/18/2024 11:48:33
[2024-12-13 10:05] VITALS: BP 109/71; PULSE 85; RESP 18; TEMP 36.3; O2SAT 92
--- NOTE | 2024-12-13 10:09 | SUR.OPER ---
12/13/24 1000- 150j shock delivered at this time by
[2024-12-13 10:15] VITALS: BP 115/72; PULSE 73; RESP 18; O2SAT 93
[2024-12-13 10:20] VITALS: BP 121/80; PULSE 74; RESP 18; O2SAT 94
[2024-12-13 10:25] VITALS: BP 120/76; PULSE 72; RESP 18; O2SAT 94
--- NOTE | 2024-12-14 10:15 | ECG_ITS ---
APPROVED REPORT Exam: Resting ECG HR:73 bpm ECG Measurements Heart Rate 73 AXES ME 217 P 45 QRSd 82 QRS 9 QT 402 T 73 QTc 428 Conclusion SINUS RHYTHM WITH FIRST DEGREE AV BLOCK LOW QRS VOLTAGE IN PRECORDIAL LEADS [QRS DEFLECTION < 1.0 mV IN CHEST LEADS] ABNORMAL ECG UNCONFIRMED REPORT Electronically signed by : Stan Shetty MD 12/16/2024 07:57:33
== END 2024-12-13 10:35 | disposition home or self-care (01) ==
PROVIDERS: Internal Medicine; PCP Family Medicine; Visit Provider Physician Assistant
PROC: (CPT 93312; principal; 2024-12-13 09:00)
DX: I48.91 Unspecified atrial fibrillation (principal); R93.1 Abnormal findings on diagnostic imaging of heart and coronary circulation; I25.118 Atherosclerotic heart disease of native coronary artery with other forms of angina pectoris; R60.0 Localized edema; I11.9 Hypertensive heart disease without heart failure; J44.9 Chronic obstructive pulmonary disease, unspecified; E78.49 Other hyperlipidemia; F17.210 Nicotine dependence, cigarettes, uncomplicated; Z79.82 Long term (current) use of aspirin; Z79.899 Other long term (current) drug therapy; Z79.51 Long term (current) use of inhaled steroids; Z91.018 Allergy to other foods; Z79.01 Long term (current) use of anticoagulants
CPT/HCPCS: 93005; 93270; 93312; 93319; J2003; J2704; J7120

== ENCOUNTER 2025-01-02 12:01 | Outpatient (CLI) | payer BC, SELFPAY ==
--- OUTSIDE RECORDS SUMMARY | 2025-01-02 12:12 | XMS_ITS | Clinical Summary ---
Author Organization [facility] Address [address] [place] [address] Care Team Providers Care Field Staff Name Role Phone Unavailable Primary Care Provider [...] Date Last Done Comments [facility]-Depression Screening 1965 [facility]-/Child/Adol SDOH Screenings 1965 [facility]- SDOH Screenings 11/11/1985 [...] Years (1 of 1 - PCV) 11/11/2017 [id number] Vaccine (3 - 2023- season) 2024 03/30/2021, [...]
--- NOTE | 2025-01-02 12:16 | XR_ITS ---
FINAL REPORT CLINICAL HISTORY: COPD exacerbation COMPARISON: 09/11/2022 FINDINGS: CHEST 2 VIEWS No acute pulmonary density is evident. There is no evidence of effusion or other pleural disease. The mediastinum has a normal appearance. The cardiac silhouette is unremarkable. IMPRESSION: Unremarkable chest exam. Reviewed, Interpreted and Dictated by Stephan Jenkins MD Transcribed by Gianna Cervantes Authenticated and [facility]
[2025-01-02 12:34] LABS: Hematocrit 48.0 % (37.0-47.0); Hemoglobin 15.1 g/dL (12.2-16.2); Immature Granulocytes % 0.4 %; Mean Corpuscular HGB Conc 31.5 g/dL (31.8-35.4); Mean Corpuscular Hemoglobin 26.3 pg (27.0-31.2); Mean Corpuscular Volume 83.6 fl (81-99); Nucleated Red Blood Cells % 0 %; Platelet Count 384 K/mm3 (142-424); Red Blood Count 5.74 M/mm3 (4.20-5.40); Red Cell Distribution Width-SD 49.1 fL; White Blood Count 13.8 K/mm3 (4.8-10.8)
[2025-01-02 12:56] LABS: Alanine Aminotransferase 18 U/L (12-78); Albumin Level 4.2 g/dl (3.5-5.0); Albumin/Globulin Ratio 1.3 (1.1-1.8); Alkaline Phosphatase 159 U/L (38-126); Anion Gap 15.0 mEq/L (5-15); Aspartate Amino Transferase 27 U/L (14-36); Bilirubin,Total 0.6 mg/dl (0.2-1.3); Blood Urea Nitrogen 19 mg/dl (7-17); Calcium 9.9 mg/dl (8.4-10.2); Carbon Dioxide 24 mmol/L (22.0-30.0); Chloride 102 mmol/L (98-107); Creatinine,Serum 1.10 mg/dl (0.52-1.04); Estimated Glomerular Filt Rate 51 ml/min (>60); GFR (African American) 62 ML/MIN (>60); Globulin 3.2 g/dL (1.3-3.2); Glucose 204 mg/dl (74-100); Potassium 5.0 mmoL/L (3.5-5.1); Sodium 136 mmol/L (136-145); Total Protein,Serum 7.4 g/dl (6.3-8.2)
[2025-01-02 13:04] LABS: NT Pro Brain Natriuretic Pep. 811 pg/mL (0-125)
== END 2025-01-02 23:59 | disposition home or self-care (01) ==
LOC: LAB 12:05
PROVIDERS: PCP Family Medicine; Visit Provider Physician Assistant
DX: I25.118 Atherosclerotic heart disease of native coronary artery with other forms of angina pectoris (principal); I48.91 Unspecified atrial fibrillation; R93.1 Abnormal findings on diagnostic imaging of heart and coronary circulation; I10 Essential (primary) hypertension; R60.0 Localized edema; J44.1 Chronic obstructive pulmonary disease with (acute) exacerbation
CPT/HCPCS: 36415; 71046; 80053; 83880; 85025

== ENCOUNTER 2025-01-03 09:52 | Outpatient (CLI) | payer BC, SELFPAY ==
--- OUTSIDE RECORDS SUMMARY | 2025-01-03 10:13 | XMS_ITS | Clinical Summary ---
Author Organization [facility] Address [address] [place] [address] Care Team Providers Care Launch Check Out Name Role Phone Unavailable Primary Care Provider [...] Years (1 of 1 - PCV) 11/11/2017 [id number] Vaccine (3 - 2023- season) 2024 03/30/2021, [...]
== END 2025-01-03 23:59 | disposition home or self-care (01) ==
LOC: LAB 09:54
PROVIDERS: PCP Family Medicine; Visit Provider Internal Medicine Medical Oncology
DX: R79.9 Abnormal finding of blood chemistry, unspecified (principal)
CPT/HCPCS: 36415; 81270; 82668